=== PATIENT | male | born 1940 | race Caucasian/White ===

== ENCOUNTER 2017-12-10 18:25 | Inpatient (IN) | payer MEDICARE ==
[~2017-12-10 18:25] MED LIST: PHENYLEPHRINE-NS 100 MCG/ML 10 ML SYRINGE ONE
[2017-12-10 19:35] LABS: #Basophils 0.1 thou/uL (0.0-0.2); #Eosinphils 0.1 thou/uL (0.0-0.7); #Lymphocytes 3.5 thou/uL (1.20-3.40); #Monocytes 0.9 thou/uL (0.11-0.59); #Neutrophils 5.4 thou/uL (1.40-6.50); %Basophils 0.7 % (0.0-1.0); %Eosinophils 1.4 % (0.0-10.0); %Lymphocytes 35.1 % (21.0-51.0); %Monocytes 8.5 % (0.0-10.0); %Neutrophils 54.3 % (42.0-75.0); Hemoglobin 9.8 g/dL (14.0-18.0); Mean Corpuscular HGB CONC 32.7 g/dL (32.0-36.0); Mean Corpuscular Hemoglobin 27.3 pg (27.0-31.0); Mean Corpuscular Volume 83.5 fl (80.0-94.0); Mean Platelet Volume 8.5 fL (7.4-10.4); Platelet Count 185 thou/uL (130-400); RBC Distribution Width 14.7 % (11.5-14.5); Red Blood Cell (RBC) Count 3.57 mill/uL (4.70-6.10)
[2017-12-10 19:55] LABS: ALT (SGPT) 20 U/L (8-55); AST (SGOT) 28 U/L (5-34); Albumin 3.4 g/dL (3.4-4.8); Alkaline Phosphatase 91 U/L (40-150); Anion Gap 12 mmol/L (10-20); BUN (Urea Nitrogen) 43 mg/dL (8.4-25.7); Bilirubin, Total 0.5 mg/dL (0.2-1.2); Calc. Creatinine Clearance 0 mL/min (70-130); Calcium 8.8 mg/dL (7.8-10.44); Carbon Dioxide 19 mmol/L (23-31); Chloride 110 mmol/L (98-107); Estimated GFR-MDRD 45; Globulin 3.3 g/dL (2.4-3.5); Glucose 182 mg/dL (83-110); Potassium 4.5 mmol/L (3.5-5.1); Protein, Total 6.7 g/dL (5.8-8.1); Sodium 136 mmol/L (136-145)
[2017-12-10] MEDS ORDERED: Promethazine HCl 25 MG/ML VIAL IM PRN (22:38)
[2017-12-10] MEDS ORDERED: Ondansetron HCl/PF 4 MG/2 ML Vial IVP PRN ×2 (22:38→23:36)
[2017-12-10] MEDS ORDERED: Promethazine HCl 25 MG/ML VIAL SLOW IVP PRN (22:38)
[2017-12-10] MEDS ORDERED: Ondansetron ODT 4 MG TAB SL PRN (23:36)
[2017-12-10] MEDS ORDERED: Sodium Chloride 0.9% 1,000 ML IV SCH (23:45)
[2017-12-11 00:57] VITALS: BMI 28.3
[2017-12-11] MEDS ORDERED: Dextrose 5% in Water 1,000 ML IV PRN (04:26)
[2017-12-11] MEDS ORDERED: HYDROcodone/Acetaminophen 5/325 mg Tablet PO PRN (04:26)
[2017-12-11] MEDS ORDERED: Acetaminophen 325 MG TAB PO PRN (04:26)
[2017-12-11] MEDS ORDERED: Ondansetron HCl/PF 4 MG/2 ML Vial IVP PRN (04:26)
[2017-12-11] MEDS ORDERED: Dextrose 50% Abboject 50 ML SYRINGE SLOW IVP PRN (04:26)
[2017-12-11] MEDS ORDERED: Ondansetron ODT 4 MG TAB PO PRN (04:26)
[2017-12-11 05:36] LABS: #Eosinphils 0.1 thou/uL (0.0-0.7); #Lymphocytes 1.9 thou/uL (1.20-3.40); #Monocytes 0.6 thou/uL (0.11-0.59); #Neutrophils 6.1 thou/uL (1.40-6.50); %Basophils 0.4 % (0.0-1.0); %Lymphocytes 21.8 % (21.0-51.0); %Monocytes 7.1 % (0.0-10.0); %Neutrophils 69.7 % (42.0-75.0); Hemoglobin 8.6 g/dL (14.0-18.0); Mean Corpuscular HGB CONC 32.5 g/dL (32.0-36.0); Mean Corpuscular Hemoglobin 27.3 pg (27.0-31.0); Mean Corpuscular Volume 83.8 fl (80.0-94.0); Mean Platelet Volume 8.8 fL (7.4-10.4); Platelet Count 154 thou/uL (130-400); Red Blood Cell (RBC) Count 3.15 mill/uL (4.70-6.10); White Blood Cell (WBC) Count 8.8 thou/uL (4.8-10.8)
--- NOTE | 2017-12-11 08:22 | HP ---
DATE OF ADMISSION: 12/11/2017 TIME OF SERVICE: 0300 CHIEF COMPLAINT: Black stools. HISTORY OF PRESENT ILLNESS: Mr. Contreras is a pleasant 77-year-old white male with history of diabetes mellitus type 2, cerebrovascular disease, status post stroke in the past, hearing impairment, chroni c tremors, possible early Parkinson's disease, osteoarthritis and past upper gastrointestinal bleedin g from peptic ulcer disease who presents to the emergency department in transfer for evaluation of up per GI bleed. The patient and his did note he has been having black stools that were sticky and tarry and foul smelling for 5-6 days. No vomiting or abdominal pain. He had a history of a gastric ulcer with upper GI bleed in the past requiring 5 units of packed red blood cells. This was very si milar. They presented to an outside urgent care clinic in [place] and were evaluated. There he wa s found to have a hemoglobin of 8.0 and was transferred to a local hospital in [facility]. There repeat labs showed his hemoglobin to have dropped from 8.0 to 7.4. He received 2 units of pack ed red blood cells and was transferred to our facility for further evaluation. The patient had labs again repeated here and was found to have a hemoglobin of 9.8 and we were subseq uently called for admit. Dr. Contreras hadoop application developer for Gastroenterology was consulted as well. Patient was handed over to me as a later admit. I initially tried to see him around 2300 hours on , however, he had already gone to the Gastroenterology lab, I am seeing him post-procedure. He was seen by Dr. Contreras and taken to the endoscopy suite. EGD was performed that found a gastri c ulcer that was bleeding. He was injected with 1:10,000 epinephrine and cauterized with good hemost asis achieved. He was subsequent transferred to the floor. The patient has continued to have a coup le of smaller black bowel movements. No dizziness or lightheadedness with standing. No nausea, vomi ting or other complaints. PAST MEDICAL HISTORY: 1. Diabetes mellitus type 2, insulin-dependent. 2. Cerebrovascular disease status post stroke in the past. 3. Hearing impairment. 4. Tremors, possibly Parkinson disease. 5. Osteoarthritis. 6. Hyperlipidemia. 7. GERD. 8. Benign prostatic hypertrophy. 9. Peptic ulcer disease, status post GI bleed 6-7 years ago. PAST SURGICAL HISTORY: 1. Skin growth on the back of his neck that was noncancerous. 2. EGD 12/10/2017 and earlier 6-7 years ago. HOME MEDICATIONS: 1. Plavix 75 mg p.o. daily. 2. Benazepril 5 mg daily. 3. Cholecalciferol 2000 units daily. 4. Citalopram 10 mg daily. 5. Fenofibrate 160 mg daily. 6. Finasteride 5 mg daily. 7. Levemir 50 units subcutaneously b.i.d. 8. [place] 3 daily. 9. Omeprazole 20 mg daily. 10. Mysoline 150 mg p.o. at bedtime. 11. Simvastatin 40 mg daily. 12. Flomax 0.4 mg p.o. at bedtime. 13. Vitamin B12 intrinsic factor and folate, multivitamin daily. ALLERGIES: ASPIRIN, IODINE and LATEX. FAMILY HISTORY: Negative for clotting or bleeding disorder. No immune dysfunction. SOCIAL HISTORY: Negative for habits x3. He is and no recent travel. REVIEW OF SYSTEMS: Ten point review of systems was performed and is negative for all systems except as per HPI. PHYSICAL EXAMINATION: VITAL SIGNS: Temperature 98.3, pulse 71, blood pressure 144/51, respiratory rate 14, 99% on room air . GENERAL: He is awake. He is alert. He is oriented x3. He is very hard of hearing. He is in no ac annette distress. HEENT: Normocephalic, atraumatic. Pupils equal, round, react to light bilaterally. Mucous membrane s moist. There is no visible lesions or thrush. NECK: Supple, without lymphadenopathy, JVD, or thyromegaly. Normal carotid upstrokes without bruits . RESPIRATORY: Lungs are clear. LUNGS: He has good air movement. Symmetrical chest excursion. No wheezes, no rales, no rhonchi. CARDIOVASCULAR: Normal S1, S2. No S3 or S4. No audible murmurs. He has normal rate and regular rh ythm. ABDOMEN: Soft. It is nontender, nondistended. He has good hyperactive bowel sounds present in all 4 quadrants. There is no rebound, rigidity or guarding. EXTREMITIES: No cyanosis, no clubbing has got 1+ edema in bilateral lower extremities from the ankle level down. He has got 1+ dorsalis pedis and posterior tibial pulses. SKIN: Otherwise, warm and well perfused. No rashes or lesions. MUSCULOSKELETAL: Shows large joint to be uninflamed. He has got good range of motion and no palpabl e effusions. NEUROLOGIC: Shows cranial nerves II-XII are grossly intact. He has no focal neurologic deficits. H e has got 5/5 strength in all 4 of his extremities. Normal speech pattern. LABORATORY DATA: Sodium 136, potassium 4.5, chloride 110, bicarbonate 19, BUN 43, creatinine 1.51, g lucose 182 and calcium 8.8. Liver functions completely within normal limits. CBC showed a white count of 10.0, hemoglobin is 9.8, hematocrit of 29.8, platelet count is 185,000. Hemoglobin is up from 7.4 in the pouching regional status post 2 units of packed red blood cells. RADIOGRAPHIC STUDIES: None here. ASSESSMENT AND PLAN: 1. Duodenal ulcer and upper gastrointestinal bleed: The patient underwent EGD with cautery and chem ical injection. Hemostasis achieved. We will get a repeat H&H now and watch him through the day. T nadege are asking if they would be able to go home later today and that certainly will be up to Dr. Kam curry. I think if his blood counts are stable, it certainly would be a consideration. 2. Acute blood loss anemia, hemoglobin was 8.0 down to 7.4, now up to 9.8. He is status post 2 unit s packed red blood cells. We will trend his H&H. I do expect it to drop some after hydration. 3. Diabetes mellitus type 2. The patient was placed on clear liquid diet. We will use sliding scal e insulin for correction. He normally gets 4 units of Levemir b.i.d. and 30 units of Humalog t.i.d. with meals. We will hold off on the long-acting and short-acting insulins until he is eating more re gularly. 4. Cerebrovascular disease. The patient has been on Plavix. Obviously, that will be on hold at thi s time. He cannot take aspirin due to his allergy. He will need to speak with his neurologist and c ardiologist when he gets back home. 5. Hearing impairment, chronic. 6. History of tremors on Mysoline, will continue. 7. Hyperlipidemia, on Crestor. 8. Gastroesophageal reflux disease/peptic ulcer disease/duodenal ulcer on omeprazole. He is on Prot britta drip now and will likely be transitioned to Protonix 40 mg p.o. b.i.d. for some time. 9. Benign prostatic hypertrophy on tamsulosin and finasteride to continue. CODE STATUS: Code status was discussed with the patient and his family, he does wish to be full code .
[2017-12-11] MEDS: Sodium Chloride 0.9% 1,000 ML IV SCH ×3 (08:30→21:25)
[2017-12-11] MEDS: Finasteride 5 MG TAB PO SCH (08:31)
[2017-12-11] MEDS: Tamsulosin HCl 0.4 MG CAP PO SCH (08:31)
[2017-12-11] MEDS: Citalopram 10 MG TAB PO SCH (08:31)
--- NOTE | 2017-12-11 10:17 | CON ---
DATE OF CONSULTATION: 12/10/2017 REFERRING PHYSICIAN: Dr. Leonardo, [facility] service. REASON FOR CONSULTATION: History of black tarry stools x3 this morning and also anemia. HISTORY OF PRESENT ILLNESS: Mr. Benito Contreras is a very pleasant 77-year-old male, who lives in [place]. The patient has history of hypertension , diabetes mellitus, hyperlipidemia. The patient also has history of TIA and also has history of CVA in the past. The patient developed black-tarry stool this morning around 2:00. He had 3 large black tarry stools, which turned to melenic stools subsequently. The patient was taken to [place] [facility]. He was hypotensive in the ER with systolic blood pressure around 90.. The patient given 2 units of packed RBCs and his blood pressure came up to around 130. The patient was transferred here for further care, as there is no GI M.D. available at [place]. The patient is not a good historian. He is awake, alert, and communicative. However, most of the history was obtained by going over the medical records from before and also talking to the patient's . The patient has had a TIA in the past, also has stroke in the past. The patient was on Plavix for a while, which was stopped. However, a few months ago which showed he was placed back on Plavix again. The patient had no abdominal pain, no nausea, no vomiting. His last bowel movement was 10:00 this morning. He also has a history of bleeding, peptic ulcer 7 years ago and has EEG and had colonoscopy in 2010 at [place]. The patient has no relevant history. ALLERGIES: IODINE, ASPIRIN. SOCIAL HISTORY: Patient is a former smoker. Does not drink alcohol. MEDICAL ILLNESSES: 1. Hypertension. 2. Hyperlipidemia. 3. Diabetes mellitus. 4. Transient ischemic attack. 5. History of cerebrovascular accident, left-sided weakness. 6. History of bleeding peptic ulcer in 2010. 7. History of depression, anxiety. 8. Prostatic hypertrophy. PAST SURGICAL HISTORY: Removal of a noncancerous tumor of the back of the neck in the past. No other surgeries. FAMILY HISTORY: Father and son had CVA and mother and daughter had heart disease. No family history of any cancer. Other relevant medical history, he was hospitalized in 07/2017 with generalized weakness and dehydration. He also had cardiac evaluation in 08/[address] Granado and stress test was negative. He also has history of benign tremors of the hand and he has seen Neurology. There is a mention that he will be developing Parkinson's disease later on. However, they are not told him about Parkinson's disease. MEDICATIONS: List reviewed. REVIEW OF SYSTEMS: A 10-point systems reviewed. SAS DEVELOPER: History of TIA and also CVA in the past. No chronic headache, no syncope, no seizure disorder. Constitutional: No history of fever, no weight loss, has good appetite. Respiratory system: No history of chronic cough. No hemoptysis, dyspnea. Cardiovascular system: No chest pain, no palpitation, no orthopnea or PND. Genitourinary: History of prostatic hypertrophy with some nocturia and also frequency of urination. Musculoskeletal: Nonrelevant. Endocrine: Nonrelevant. Hematological: Nonrelevant. Neuropsychiatric: History of depression. PHYSICAL EXAMINATION: GENERAL: Patient is obese, appears very comfortable. He is awake, alert, and communicative. However, he is not a good historian. Most of the history was obtained by talking to the patient's . VITAL SIGNS: Stable. His pulse is around 77, blood pressure is 130/70. HEENT: Conjunctivae clear. NECK: Supple. No adenitis or thyromegaly noted. CARDIOVASCULAR SYSTEM: First and second heart sounds normal. LUNGS: Clear to auscultation. ABDOMEN: Soft to palpate. No organomegaly. No tenderness. No masses. EXTREMITIES: Reveal no edema. The patient does have a ventral hernia. LABORATORY DATA: Today CBC: WBC 10,000, hemoglobin 9.8, hematocrit 29.8. This is after 2 units of packed RBCs at [place]. The platelet count is 185, 000, polymorphs 54, lymphocytes 35, monocytes 8. Serum chemistries: Sodium is 136, potassium 4.5, chloride is 110, bicarbonate 19, BUN is 43 most likely from GI bleeding, creatinine is 1.51, glucose 182, calcium 8.8. Bilirubin 0.5, AST 28, ALT 20, alkaline phosphatase 91, albumin 3.4. CLINICAL IMPRESSION: 1. A 77-year-old male with history of previous cerebrovascular accident and has been on Plavix. The patient has bleeding and peptic ulcer disease, more than 7 years ago. The patient presents with melena and also anemia. BUN elevated, indicative of acute upper gastrointestinal bleeding. Based on the above information, I believe, he mostly likely has bleeding and peptic ulcer. 2. Hypertension. 3. Hyperlipidemia. 4. Diabetes mellitus. 5. Status post cerebrovascular accident. 6. Prostatic hypertrophy. 7. Past history of bleeding peptic ulcer. 8. Benign tremors. RECOMMENDATIONS: 1. IV PPI. 2. Emergent EGD later on today, and I will make further recommendations. MTDD
--- NOTE | 2017-12-11 12:01 | OP ---
DATE OF PROCEDURE: 12/10/2017 SURGEON: Valerio Contreras M.D. OPERATIVE PROCEDURE: 1. Esophagogastroduodenoscopy. 2. Esophagogastroduodenoscopy with injection of 1:10,000 epinephrine to a total of 7 mL over the bleeding vessel in the duodenal bulb. 3. A 10 [place] heater probe therapy of a bleeding ulcer over the duodenal bulb. PREOPERATIVE DIAGNOSES: A 77-year-old male with melena, anemia due to blood loss and also past history of bleeding peptic ulcer. The patient is on Plavix. Undergoing EGD. POSTOPERATIVE DIAGNOSES: 1. Normal esophagus. 2. Normal fundus, cardia and gastric body. 3. Also, non bleeding gastric ulcer. 4. Bleeding ulcer in the duodenal bulb with a large blood clot. PROCEDURE NOTE: The patient was placed on his left lateral position and was given sedation by Anesthesia Department. A Pentax video gastroscope under direct vision was passed down the oropharynx, past the GE junction, into the stomach. The esophageal mucosa appeared normal. The GE junction, no pathology seen. The fundus, cardia and gastric body, no lesions. The stomach is completely free of any fresh blood or any coffee-ground material. Over the gastric antrum, the patient was found to have erythematous mucosa with a gastric ulcer. The ulcer is nonbleeding. The patient found to have ulceration in the duodenal bulb with a visible vessel and bleeding. The patient has been on Plavix over the last several months. It was injected at the ulcer base and and visible vessel with 1:10,000 epinephrine. A total of _9 ccs injected to ulcer base. The patient continued to have mild bleeding from the ulcer base so I elected to cauterize the ulcer base with a 10-[place] probe with good hemostasis. Because of the Plavix effect, I am not sure whether the cautery would be effective. The stomach was decompressed and scope removed. RECOMMENDATIONS: 1. Follow up H&H. 2. IV PPI. 3. Transfuse p.r.n. 4. Follow up Helicobacter antibody blood test and if the test comes back positive, treat accordingly._. MTDD
[2017-12-11] MEDS: Pantoprazole 80 MG in Sodium Chloride 0.9% 100 ML IVP SCH ×3 (12:12→21:54)
--- NOTE | 2017-12-11 12:54 | PDOC.PN ---
- Subjective Encounter Start Date: 12/11/17 Encounter Start Time: 13:03 Subjective: No new complaints. -: no acute events overnight. -: s/p EGD with duodenal ulcer, bleeding seen. - Objective Resuscitation Status: Resuscitation Status FULL:Full Resuscitation MAR Reviewed: Yes Vital Signs & Weight: Vital Signs (12 hours) Temp Pulse Resp BP BP Pulse Ox 12/11/17 08:30 167/71 H 12/11/17 08:00 97.5 F L 73 18 95 12/11/17 04:00 97.5 F L 73 18 165/79 H 97 Weight Weight 197 lb 1.6 oz I&O: 12/10/17 12/11/17 12/12/17 06:59 06:59 06:59 Intake Total 875 Balance 875 Result Diagrams: 12/11/17 04:46 12/10/17 19:07 Additional Labs: Accuchecks 12/11/17 12/11/17 10:15 06:06 POC Glucose 157 H 164 H Phys Exam - Physical Examination Constitutional: NAD HEENT: PERRLA, moist MMs, sclera anicteric Neck: no JVD, supple, full ROM Respiratory: no wheezing, no rales, no rhonchi, clear to auscultation bilateral Cardiovascular: RRR, no significant murmur, no rub Gastrointestinal: soft, non-tender, no distention, positive bowel sounds Musculoskeletal: no edema, pulses present Psychiatric: normal affect Skin: no rash, normal turgor Dx/Plan (1) Duodenal ulcer Status: Acute Comment: s/p EGD. Hemoglobin stable. Continue IV protonix. f/u GI recs. (2) HTN (hypertension) Code(s): I10 - ESSENTIAL (PRIMARY) HYPERTENSION Status: Acute Qualifiers: Hypertension type: essential hypertension Qualified Code(s): I10 - Essential (primary) hypertension Comment: Fair control bu above goal. Continue home medications. Monitor BP closely. (3) History of CVA (cerebrovascular accident) Code(s): Z86.73 - PRSNL HX OF TIA (TIA), AND CEREB INFRC W/O RESID DEFICITS Status: Acute Comment: Unchanged. (4) BPH (benign prostatic hyperplasia) Code(s): N40.0 - BENIGN PROSTATIC HYPERPLASIA WITHOUT LOWER URINRY TRACT SYMP Status: Chronic Qualifiers: Lower urinary tract symptom presence: unspecified whether lower urinary tract symptoms present Comment: Continue finasteride. (5) DM type 2 (diabetes mellitus, type 2) Status: Chronic Qualifiers: Diabetes mellitus group home insulin use: with group home use Diabetes mellitus complication detail: with chronic kidney disease Chronic kidney disease stage: stage 3 (moderate) Comment: Controlled and at goal. Continue current regimen. (6) Dyslipidemia Code(s): E78.5 - HYPERLIPIDEMIA, UNSPECIFIED Status: Chronic Comment: Continue fenofibrate. - Plan cont current plan of care, plan discussed w/ family, DVT proph w/SCDs Started on clears- will advance as tolerated. * . Review of Systems - Medications/Allergies Allergies/Adverse Reactions: Allergies Allergy/AdvReac Type Severity Reaction Status Date / Time aspirin Allergy Verified 12/11/17 00:47 iodine Allergy Verified 12/11/17 00:47 Medications: Current Medications Acetaminophen (Tylenol) 650 mg PO Q4H PRN PRN Reason: Headache/Fever or Pain Hydrocodone Bitart/Acetaminophen ([place] 5/325) 1 tab PO Q4H PRN PRN Reason: Moderate Pain (4-6) Benazepril HCl (Lotensin) 5 mg PO DAILY [facility] Last Admin: 12/11/17 08:30 Dose: 5 mg Citalopram Hydrobromide (Celexa) 10 mg PO DAILY [facility] Last Admin: 12/11/17 08:31 Dose: 10 mg Dextrose/Water (Dextrose 50%) 25 gm SLOW IVP PRN PRN PRN Reason: Hypoglycemia Finasteride (Proscar) 5 mg PO DAILY [facility] Last Admin: 12/11/17 08:31 Dose: 5 mg Glucagon (Glucagon) 1 mg IM PRN PRN PRN Reason: Hypoglycemia Pantoprazole Sodium 80 mg/ (Sodium Chloride) 100 mls @ 10 mls/hr IVP INF [facility] Last Admin: 12/11/17 12:12 Dose: 100 mls Dextrose/Water (D5w) 1,000 mls @ 0 mls/hr IV .Q0M PRN; As Directed PRN Reason: Hypoglycemia Sodium Chloride (Normal Saline 0.9%) 1,000 mls @ 100 mls/hr IV .Q10H [facility] Last Admin: 12/11/17 08:30 Dose: 1,000 mls Insulin Human Lispro (Humalog) 0 units SC .AGGRESSIVE SLIDING PRN PRN Reason: Aggressive Correctional Scale Insulin Human Lispro (Humalog) 0 units SC .BEDTIME SLIDING SC PRN PRN Reason: Bedtime Correctional Scale Ondansetron HCl (Zofran Odt) 4 mg PO Q6H PRN PRN Reason: Nausea/Vomiting Ondansetron HCl (Zofran) 4 mg IVP Q6H PRN PRN Reason: Nausea/Vomiting Primidone (Mysoline) 150 mg PO [facility] Tamsulosin HCl (Flomax) 0.4 mg PO DAILY [facility] Last Admin: 12/11/17 08:31 Dose: 0.4 mg
[2017-12-11] MEDS: HumaLOG 300 UNITS/3 ML VIAL SC PRN ×2 (18:22→21:29)
[2017-12-11] MEDS: Primidone 50 MG TAB PO SCH (21:25)
[2017-12-12 04:53] LABS: #Eosinphils 0.3 thou/uL (0.0-0.7); #Lymphocytes 2.1 thou/uL (1.20-3.40); #Monocytes 0.6 thou/uL (0.11-0.59); #Neutrophils 2.9 thou/uL (1.40-6.50); %Basophils 0.8 % (0.0-1.0); %Eosinophils 4.4 % (0.0-10.0); %Lymphocytes 36.1 % (21.0-51.0); %Monocytes 9.3 % (0.0-10.0); %Neutrophils 49.5 % (42.0-75.0); Hemoglobin 7.7 g/dL (14.0-18.0); Mean Corpuscular HGB CONC 33.8 g/dL (32.0-36.0); Mean Corpuscular Hemoglobin 27.7 pg (27.0-31.0); Mean Corpuscular Volume 82.1 fl (80.0-94.0); Mean Platelet Volume 8.5 fL (7.4-10.4); Platelet Count 129 thou/uL (130-400); RBC Distribution Width 15.1 % (11.5-14.5); Red Blood Cell (RBC) Count 2.77 mill/uL (4.70-6.10); White Blood Cell (WBC) Count 5.9 thou/uL (4.8-10.8)
[2017-12-12 05:02] LABS: Anion Gap 9 mmol/L (10-20); BUN (Urea Nitrogen) 20 mg/dL (8.4-25.7); Calc. Creatinine Clearance 63 mL/min (70-130); Calcium 8.5 mg/dL (7.8-10.44); Carbon Dioxide 21 mmol/L (23-31); Chloride 113 mmol/L (98-107); Estimated GFR-MDRD 58; Glucose 102 mg/dL (83-110); Potassium 4.1 mmol/L (3.5-5.1); Sodium 139 mmol/L (136-145)
[2017-12-12] MEDS: Finasteride 5 MG TAB PO SCH (07:59)
[2017-12-12] MEDS: Fenofibrate Nanocrystallized 145 MG TAB PO SCH (07:59)
[2017-12-12] MEDS: Citalopram 10 MG TAB PO SCH (08:00)
[2017-12-12] MEDS: Tamsulosin HCl 0.4 MG CAP PO SCH (08:00)
[2017-12-12 08:55] LABS: Hemoglobin 8.3 g/dL (14.0-18.0)
[2017-12-12] MEDS ORDERED: Non-Formulary Item 1 EACH (Fenofibrate [Fenofibrate] 160 MG) PO SCH (09:00)
--- NOTE | 2017-12-12 09:21 | PRG ---
DATE OF SERVICE: 12/11/2017 HISTORY OF PRESENT ILLNESS: Mr. Benito Contreras is a 77-year-old male transferred from [place] with GI bleeding. He underwent an emergent EGD last night. He was found to have 2 ulcerations. One was over the gastric antrum and another over the duodenal bulb. The ulcer was active bleeding. This was injected with epinephrine and also cauterized. However, because he has been on Plavix for a while, it is not very clear whether the heater probe therapy is going to be effective. The patient has done well overnight. The patient had an epsidoe of vomiting last night and also an episode of passing melenic stool. Subsequently, he has had no more nausea or vomiting. OBJECTIVE GENERAL: He is awake, alert, and communicative. He is in no distress. VITAL SIGNS: He is afebrile. His pulse is 73, blood pressure 167/70. CARDIOVASCULAR SYSTEM/LUNGS: Within normal limits. ABDOMEN: Soft to palpate. Abdomen is nontender. There is no organomegaly or masses. LABORATORY DATA: Shows today, chem-7 is normal except BUN is 43. Creatinine is 1.5. The blood count has dropped to 8.6 this morning. The hematocrit is 26.4. RECOMMENDATIONS: 1. Continue IV Protonix. 2. keep him on clear liquids for one more day. 3. Follow up H and H. MTDD
[2017-12-12] MEDS: HumaLOG 300 UNITS/3 ML VIAL SC PRN ×3 (11:32→20:17)
--- NOTE | 2017-12-12 14:02 | PDOC.PN ---
- Subjective Encounter Start Date: 12/12/17 Encounter Start Time: 14:03 Subjective: No new complaints -: No acute events overnight. - Objective Resuscitation Status: Resuscitation Status FULL:Full Resuscitation MAR Reviewed: Yes Vital Signs & Weight: Vital Signs (12 hours) Temp Pulse Resp BP BP Pulse Ox 12/12/17 13:29 98.2 F 67 14 156/58 H 96 12/12/17 08:54 167/71 H 12/12/17 08:00 98.5 F 83 20 Weight Weight 197 lb 1.6 oz I&O: 12/11/17 12/12/17 12/13/17 06:59 06:59 06:59 Intake Total 875 901.5 Output Total 2 Balance 875 899.5 Result Diagrams: 12/12/17 08:34 12/12/17 03:58 Additional Labs: Accuchecks 12/12/17 12/12/17 12/11/17 11:16 05:10 19:46 POC Glucose 179 H 106 231 H 12/11/17 16:06 POC Glucose 195 H Phys Exam - Physical Examination Constitutional: NAD HEENT: PERRLA, moist MMs, sclera anicteric Neck: no JVD, supple, full ROM Respiratory: no wheezing, no rales, no rhonchi, clear to auscultation bilateral Cardiovascular: RRR, no significant murmur, no rub Gastrointestinal: soft, non-tender, no distention, positive bowel sounds Musculoskeletal: no edema, pulses present Neurological: non-focal, moves all 4 limbs Psychiatric: normal affect Deviation from normal: AO x 2 (person and place) Skin: no rash, normal turgor Dx/Plan (1) Duodenal ulcer Status: Acute Comment: s/p EGD. Hemoglobin stable. Continue IV protonix. GI recs/: IVF and protonix for one more day. (2) HTN (hypertension) Code(s): I10 - ESSENTIAL (PRIMARY) HYPERTENSION Status: Acute Qualifiers: Hypertension type: essential hypertension Qualified Code(s): I10 - Essential (primary) hypertension Comment: Fair control. Continue home medications. (3) History of CVA (cerebrovascular accident) Code(s): Z86.73 - PRSNL HX OF TIA (TIA), AND CEREB INFRC W/O RESID DEFICITS Status: Acute Comment: Unchanged. (4) BPH (benign prostatic hyperplasia) Code(s): N40.0 - BENIGN PROSTATIC HYPERPLASIA WITHOUT LOWER URINRY TRACT SYMP Status: Chronic Qualifiers: Lower urinary tract symptom presence: unspecified whether lower urinary tract symptoms present Comment: Continue finasteride. (5) DM type 2 (diabetes mellitus, type 2) Status: Chronic Qualifiers: Diabetes mellitus usp insulin use: with adjunct faculty for medical terminology use Diabetes mellitus complication detail: with chronic kidney disease Chronic kidney disease stage: stage 3 (moderate) Comment: Controlled and at goal. Continue current regimen. (6) Dyslipidemia Code(s): E78.5 - HYPERLIPIDEMIA, UNSPECIFIED Status: Chronic Comment: Continue fenofibrate. - Plan cont current plan of care, plan discussed w/ family, DVT proph w/SCDs * . Review of Systems - Medications/Allergies Allergies/Adverse Reactions: Allergies Allergy/AdvReac Type Severity Reaction Status Date / Time aspirin Allergy Verified 12/11/17 00:47 iodine Allergy Verified 12/11/17 00:47 Medications: Current Medications Acetaminophen (Tylenol) 650 mg PO Q4H PRN PRN Reason: Headache/Fever or Pain Hydrocodone Bitart/Acetaminophen ([place] 5/325) 1 tab PO Q4H PRN PRN Reason: Moderate Pain (4-6) Benazepril HCl (Lotensin) 5 mg PO DAILY [facility] Last Admin: 12/12/17 08:54 Dose: 5 mg Citalopram Hydrobromide (Celexa) 10 mg PO DAILY [facility] Last Admin: 12/12/17 08:00 Dose: 10 mg Dextrose/Water (Dextrose 50%) 25 gm SLOW IVP PRN PRN PRN Reason: Hypoglycemia Fenofibrate (Tricor) 145 mg PO DAILY [facility] Last Admin: 12/12/17 07:59 Dose: 145 mg Finasteride (Proscar) 5 mg PO DAILY [facility] Last Admin: 12/12/17 07:59 Dose: 5 mg Glucagon (Glucagon) 1 mg IM PRN PRN PRN Reason: Hypoglycemia Pantoprazole Sodium 80 mg/ (Sodium Chloride) 100 mls @ 10 mls/hr IVP INF [facility] Last Admin: 12/11/17 21:54 Dose: 100 mls Dextrose/Water (D5w) 1,000 mls @ 0 mls/hr IV .Q0M PRN; As Directed PRN Reason: Hypoglycemia Sodium Chloride (Normal Saline 0.9%) 1,000 mls @ 100 mls/hr IV .Q10H [facility] Last Admin: 12/11/17 21:25 Dose: 1,000 mls Insulin Human Lispro (Humalog) 0 units SC .AGGRESSIVE SLIDING PRN PRN Reason: Aggressive Correctional Scale Last Admin: 12/12/17 11:32 Dose: 3 unit Insulin Human Lispro (Humalog) 0 units SC .BEDTIME SLIDING SC PRN PRN Reason: Bedtime Correctional Scale Last Admin: 12/11/17 21:29 Dose: 2 unit Ondansetron HCl (Zofran Odt) 4 mg PO Q6H PRN PRN Reason: Nausea/Vomiting Ondansetron HCl (Zofran) 4 mg IVP Q6H PRN PRN Reason: Nausea/Vomiting Primidone (Mysoline) 150 mg PO HS [facility] Last Admin: 12/11/17 21:25 Dose: 150 mg Sodium Chloride (Flush - Normal Saline) 10 ml IVF Q12HR [facility] Last Admin: 12/12/17 08:00 Dose: 10 ml Sodium Chloride (Flush - Normal Saline) 10 ml IVF PRN PRN PRN Reason: Saline Flush Tamsulosin HCl (Flomax) 0.4 mg PO DAILY [facility] Last Admin: 12/12/17 08:00 Dose: 0.4 mg
[2017-12-12 14:40] LABS: Hemoglobin 8.1 g/dL (14.0-18.0)
[2017-12-12] MEDS: Sodium Chloride 0.9% 1,000 ML IV SCH ×2 (16:04→20:15)
[2017-12-12] MEDS: Pantoprazole 80 MG in Sodium Chloride 0.9% 100 ML IVP SCH (19:14)
[2017-12-12 19:53] LABS: Hemoglobin 7.8 g/dL (14.0-18.0)
[2017-12-12] MEDS: Primidone 50 MG TAB PO SCH (20:15)
[2017-12-12 21:26] VITALS: TEMP 98.4
[2017-12-13 05:02] LABS: #Eosinphils 0.2 thou/uL (0.0-0.7); #Lymphocytes 1.8 thou/uL (1.20-3.40); #Monocytes 0.5 thou/uL (0.11-0.59); #Neutrophils 2.7 thou/uL (1.40-6.50); %Basophils 0.2 % (0.0-1.0); %Eosinophils 4.5 % (0.0-10.0); %Lymphocytes 34.4 % (21.0-51.0); %Monocytes 9.8 % (0.0-10.0); %Neutrophils 51.2 % (42.0-75.0); Hemoglobin 7.9 g/dL (14.0-18.0); Mean Corpuscular Hemoglobin 27.9 pg (27.0-31.0); Mean Platelet Volume 8.4 fL (7.4-10.4); Platelet Count 132 thou/uL (130-400); RBC Distribution Width 15.2 % (11.5-14.5); Red Blood Cell (RBC) Count 2.82 mill/uL (4.70-6.10); White Blood Cell (WBC) Count 5.3 thou/uL (4.8-10.8)
[2017-12-13 05:14] LABS: Anion Gap 5 mmol/L (10-20); BUN (Urea Nitrogen) 16 mg/dL (8.4-25.7); Calc. Creatinine Clearance 64 mL/min (70-130); Calcium 8.6 mg/dL (7.8-10.44); Carbon Dioxide 25 mmol/L (23-31); Chloride 111 mmol/L (98-107); Estimated GFR-MDRD 59; Glucose 151 mg/dL (83-110); Potassium 3.9 mmol/L (3.5-5.1); Sodium 137 mmol/L (136-145)
[2017-12-13] MEDS: Pantoprazole 80 MG in Sodium Chloride 0.9% 100 ML IVP SCH (05:27)
[2017-12-13] MEDS: Sodium Chloride 0.9% 1,000 ML IV SCH (05:27)
[2017-12-13] MEDS: HumaLOG 300 UNITS/3 ML VIAL SC PRN ×2 (06:11→12:50)
--- NOTE | 2017-12-13 08:17 | PRG ---
DATE OF SERVICE: 12/12/2017 SUBJECTIVE: This is a 77-year-old hospitalized a couple of days ago with anemia, hypotensi on, and GI bleeding. He underwent emergent EGD on Sunday night and was found to have a bleeding ulce r over the duodenal bulb. This was injected with epinephrine and cauterized. He has done well for t he last 24 to 48 hours. He did have 1 dark stool last night. He had abdominal pain, nausea, vomitin g. He had no stool today. The blood count has been drifting down slowly. On 12/10/2017, it was 9.8 and it dropped to 8.6 yesterday and today to 7.7. Hematocrit 22.7. His Ch em-7 shows a normal BUN of 20 and creatinine 1.20. OBJECTIVE: GENERAL: Appears very comfortable. He is awake and communicative. VITAL SIGNS: He is afebrile. Pulse is 67, and blood pressure 157/58. CARDIOVASCULAR SYSTEM: Within normal limits. LUNGS: Within normal limits. ABDOMEN: Soft. No organomegaly. No tenderness. No mass. CLINICAL IMPRESSION: 1. Gastric ulcer. 2. Ulcer in the duodenal bulb with bleeding. 3. Anemia due to blood loss, drop in blood count may be due to hemodilution. He has had no stool si nce last night. RECOMMENDATIONS: 1. Advance diet to 1800-calorie ADA diet. 2. Continue PPI. 3. Follow hemoglobin and hematocrit.
[2017-12-13] MEDS: Citalopram 10 MG TAB PO SCH (09:21)
[2017-12-13] MEDS: Tamsulosin HCl 0.4 MG CAP PO SCH (09:21)
[2017-12-13] MEDS: Fenofibrate Nanocrystallized 145 MG TAB PO SCH (09:21)
[2017-12-13] MEDS: Finasteride 5 MG TAB PO SCH (09:21)
[2017-12-13 09:25] VITALS: BP 167/71
--- NOTE | 2017-12-14 01:23 | DIS ---
DATE OF ADMISSION: 12/10/2017 DATE OF DISCHARGE: 12/13/2017 DISCHARGE DIAGNOSES: Duodenal ulcer, hypertension, history of cerebrovascular accident, benign prost atic hypertrophy, type 2 diabetes mellitus, dyslipidemia. HISTORY OF PRESENT ILLNESS/HOSPITAL COURSE: Mr. 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 He reported that he and his noted he was having dark st icky tarry stools which were foul smelling for 5-6 days. There was no abdominal pain, no nausea or v omiting. He has a history of an upper GI bleed with a gastric ulcer diagnosed in the past requiring 5 units of PRBC. He was seen at an urgent care clinic in [place] where he was evaluated and found to have hemoglobin of 8 and so he was transferred to a local hospital in [facility]. Repeat labs showed that his hemoglobin had dropped from 8-7.4. He received 2 units of packed red b lood cells and was then transferred to [facility] for further evaluation. Hemoglobin was 9. 8 and GI was called for evaluation. He had an EGD which showed bleeding duodenal ulcer. He was take n to the endoscopic suite and injected with 1:10,000 epinephrine and cauterized with good hemostasis achieved. He was then transferred to the floor. He continued to have episodes of dark bowel movemen ts which eventually resolved. Stools became normal. He was placed on IV Protonix. He will be disch arged on b.i.d. Protonix until he is followed up with GI in clinic and also for his home medications, anticoagulation will be held for at least 1 week before he restarts. DISCHARGE MEDICATIONS: Ferrous sulfate 325 mg twice a day, citalopram 10 mg daily, Levemir FlexPen 5 0 units subcutaneously twice a day, cholecalciferol 1000 units daily, rosuvastatin calcium 40 mg norma y, tamsulosin 0.4 mg daily, fenofibrate 160 mg daily, finasteride 5 mg daily, omega fatty acids, ric zepril 5 mg daily, vitamin B12/folic acid 1 tablet daily, primidone 150 mg at bedtime, Plavix 75 mg d aily, omeprazole 40 mg twice a day. PHYSICAL EXAMINATION: He was examined on the day of discharge. VITAL SIGNS: Temperature 98.4 degree Fahrenheit, pulse rate 75, blood pressure 167/71, respiratory r ate 18, oxygen saturation 93% on room air. GENERAL: Not in acute distress, lying comfortably in bed. HEENT: PERRLA, EOMI. Moist mucous membranes. Sclerae are anicteric, not pale. NECK: No JVD. Supple. RESPIRATORY: Vesicular breath sounds bilaterally with no wheezes, rales or rhonchi. CARDIOVASCULAR: S1 and S2 only with regular rate and rhythm. No murmurs, rubs or gallops. GASTROINTESTINAL: Soft, not tender, not distended. Bowel sounds normoactive. No hepatosplenomegaly . MUSCULOSKELETAL: No edema. NEUROLOGIC: Alert and oriented to person and place. No focal deficits. SKIN: Warm, dry, well-perfused. No rashes or lesions. PSYCHIATRIC: Normal mood and affect. LABORATORY DATA: Hemoglobin 7.9, WBC 5.3, platelet count 132. Sodium 137, potassium 3.9, chloride 1 11, carbon dioxide 25, anion gap 5, BUN 15, creatinine 1.19, glucose 151, calcium 8.6. IMAGING: None. PROCEDURES: EGD. CONSULTS: Gastroenterology. CONDITION AT DISCHARGE: Stable and improved. DIET: Diabetic. ACTIVITY: To resume as tolerated. CARE GOAL: To follow up with primary care physician within 1 week of discharge to repeat labs. He i s advised to return to the hospital if he develops any further episodes of dark stools or any form of gastrointestinal bleed. Discharge time 65 minutes including chart review and documentation.
== END 2017-12-13 18:20 | disposition home health service (06) | DRG 378 ==
LOC: ERS 18:25 → ERHOLD 19:38 → 2NO 23:30 → T4-B 12-11 14:45
PROVIDERS: ADMIT Emergency Medicine; ATTEND Emergency Medicine
PROC: 0W3P8ZZ Control Bleeding in Gastrointestinal Tract, Via Natural or Artificial Opening Endoscopic (ICD-10-PCS; principal; 2017-12-10)
DX: K26.4 Chronic or unspecified duodenal ulcer with hemorrhage (principal); D62 Acute posthemorrhagic anemia; E11.22 Type 2 diabetes mellitus with diabetic chronic kidney disease; G20 Parkinson's disease; I69.354 Hemiplegia and hemiparesis following cerebral infarction affecting left non-dominant side; N40.0 Benign prostatic hyperplasia without lower urinary tract symptoms; Z86.73 Personal history of transient ischemic attack (TIA), and cerebral infarction without residual deficits; E78.5 Hyperlipidemia, unspecified; M19.90 Unspecified osteoarthritis, unspecified site; K21.9 Gastro-esophageal reflux disease without esophagitis; I12.9 Hypertensive chronic kidney disease with stage 1 through stage 4 chronic kidney disease, or unspecified chronic kidney disease; N18.3 Chronic kidney disease, stage 3 (moderate)
CPT/HCPCS: 36415; 36416; 80048; 80053; 85025; 86850; 86900; 86901; 96365; 96366; A4216; C9113; J7050

== ENCOUNTER 2018-02-19 06:25 | Day surgery (SDC) | payer MEDICARE ==
[2018-02-18 10:38] VITALS: BMI 29.4
--- NOTE | 2018-02-19 07:42 | HP ---
SHORT STAY HISTORY AND PHYSICAL DATE OF ADMISSION: 02/19/2018 HISTORY OF PRESENT ILLNESS: Mr. Benito Contreras is a very pleasant 77-year-old male seen here few months ago with anemia, melena. He had an EGD and found to have bleeding ulcer in the duodenal bulb. The patient was placed on omeprazole. The patient has done well since his discharge from the hospital. The patient does take anticoagulation because previous CVA. The patient was advised to yost ve a repeat EGD done because of the bleeding peptic ulcer before. ALLERGIES: ASPIRIN, IODINE. MEDICAL ILLNESSES: 1. Hypertension. 2. Bleeding duodenal ulcer. 3. Status post CVA. 4. Diabetes. 5. Anxiety. 6. Benign prostatic hypertrophy. 7. Mild cognitive impairment. PHYSICAL EXAMINATION: VITAL SIGNS: Pulse is 70, blood pressure 130/80. HEENT: Conjunctivae clear. CARDIOVASCULAR SYSTEM: First and second heart sounds normal. LUNGS: Clear to auscultation. ABDOMEN: Soft to palpate. No organomegaly. No tenderness. No masses. ADMITTING DIAGNOSIS: Bleeding duodenal ulcer. PLAN: Repeat EGD.
--- NOTE | 2018-02-19 09:49 | OP ---
DATE OF PROCEDURE: 02/19/2018 SURGEON: Valerio Contreras M.D. OPERATIVE PROCEDURE: Esophagogastroduodenoscopy with biopsy. PREOPERATIVE DIAGNOSIS: A 77-year-old with a recent GI bleeding and was found to have a bl eeding ulcer in the duodenal bulb. The patient on PPI and also on Plavix because of previous cerebro vascular accident. The patient is symptomatic. The patient is undergoing repeat esophagogastroduode noscopy. POSTOPERATIVE DIAGNOSES: 1. Distal esophageal ring, nonobstructing. 2. Gastric erosions x2. 3. Shallow ulcer in the duodenal bulb with erythematous spot without any active bleeding. 4. Multiple tiny ulcers in the duodenal bulb. PROCEDURE IN DETAIL: The patient was placed on his left lateral position and was given sedation by A nesthesia Department. A Pentax video gastroscope under direct vision was passed down the oropharynx, past the GE junction, into the stomach and subsequently into the descending duodenum. The vocal cor ds appeared healthy. The esophageal mucosa appears normal throughout the stomach. At the GE junctio n, the patient found to have esophageal ring which was nonobstructing. Retroflexion failed to show a ny pathology of the fundus or cardia. Both the gastric body and antrum appeared healthy. The incisu ra angularis, no pathology seen. The duodenal bulb showed a shallow ulcer with erythematous spot. T his was not cauterized because he is on Plavix and aspirin. He also had 2-3 small tiny ulcerations i n the duodenal bulb. The descending duodenum, no pathology seen. Biopsies obtained of gastric antru m and gastric body. The stomach was decompressed and the scope removed. DISCHARGE PLANNING: This is a 77-year-old male with recent gastrointestinal bleeding and w as found to have a bleeding ulcer in the duodenal bulb. The patient underwent EGD and was found to h ave 2-3 small ulceration in the duodenal bulb and also a shallow ulcer. DISCHARGE RECOMMENDATIONS: 1. Pantoprazole 40 mg once a day. 2. Continue iron supplement. 3. The patient was advised to call me if he develops any melena or hematemesis.
[2018-02-19] MEDS ORDERED: Lidocaine 1% PF 5 ML VIAL ONE (12:54)
[2018-02-19] MEDS ORDERED: PROPOFOL 200 MG/20 ML VIAL ONE (12:54)
== END 2018-02-19 10:40 | disposition home or self-care (01) ==
LOC: SDC 06:25
PROVIDERS: ATTEND Internal Medicine Gastroenterology
PROC: 0DB68ZX Excision of Stomach, Via Natural or Artificial Opening Endoscopic, Diagnostic (ICD-10-PCS; principal; 2018-02-19)
DX: K25.9 Gastric ulcer, unspecified as acute or chronic, without hemorrhage or perforation (principal); K26.9 Duodenal ulcer, unspecified as acute or chronic, without hemorrhage or perforation; I10 Essential (primary) hypertension; E11.9 Type 2 diabetes mellitus without complications; Z88.5 Allergy status to narcotic agent; Z91.041 Radiographic dye allergy status; Z79.02 Long term (current) use of antithrombotics/antiplatelets; Z79.4 Long term (current) use of insulin; Z79.899 Other long term (current) drug therapy
CPT/HCPCS: 36416; 88305; 88312; J2001; J2704

== ENCOUNTER 2018-03-28 17:06 | Emergency (ER) | payer MEDICARE ==
[2018-03-28 17:52] LABS: #Basophils 0.1 thou/uL (0.0-0.2); #Eosinphils 0.3 thou/uL (0.0-0.7); #Lymphocytes 5.5 thou/uL (1.20-3.40); #Monocytes 1.5 thou/uL (0.11-0.59); #Neutrophils 6.1 thou/uL (1.40-6.50); %Eosinophils 2.2 % (0.0-10.0); %Lymphocytes 40.6 % (21.0-51.0); %Monocytes 10.8 % (0.0-10.0); %Neutrophils 45.4 % (42.0-75.0); Hemoglobin 12.6 g/dL (14.0-18.0); Mean Corpuscular HGB CONC 34.2 g/dL (32.0-36.0); Mean Corpuscular Hemoglobin 28.9 pg (27.0-31.0); Mean Corpuscular Volume 84.4 fL (78.0-98.0); Mean Platelet Volume 7.9 fL (7.4-10.4); Platelet Count 230 thou/uL (130-400); RBC Distribution Width 13.5 % (11.5-14.5); Red Blood Cell (RBC) Count 4.35 mill/uL (4.70-6.10); White Blood Cell (WBC) Count 13.4 thou/uL (4.8-10.8)
[2018-03-28 18:16] LABS: ALT (SGPT) 17 U/L (8-55); AST (SGOT) 36 U/L (5-34); Albumin 3.8 g/dL (3.4-4.8); Alkaline Phosphatase 115 U/L (40-150); Anion Gap 13 mmol/L (10-20); BUN (Urea Nitrogen) 28 mg/dL (8.4-25.7); Bilirubin, Total 0.5 mg/dL (0.2-1.2); CK (CPK) 123 U/L (30-200); Calc. Creatinine Clearance 0 mL/min (70-130); Calcium 9.7 mg/dL (7.8-10.44); Carbon Dioxide 20 mmol/L (23-31); Chloride 108 mmol/L (98-107); Estimated GFR-MDRD 42; Globulin 4.2 g/dL (2.4-3.5); Lipase 41 U/L (8-78); Potassium 3.8 mmol/L (3.5-5.1); Sodium 137 mmol/L (136-145)
[2018-03-28 18:18] LABS: CKMB 2.7 ng/mL (0-6.6); Troponin I Less than 0.010 ng/mL (< 0.028)
--- NOTE | 2018-03-28 18:19 | RAD ---
PORTABLE FAP CHEST X-RAY 03/28/18 HISTORY: Altered mental status, multiple falls. COMPARISON: 07/16/17. FINDINGS: The cardiac silhouette is magnified by projection but does appear mildly enlarged. Pulmonary vasculat ure is within normal limits. Vascular calcifications seen in the thoracic aorta. There are degenerati ve changes in the spine with evidence of osteopenia. There has been no significant interval change fr om prior exam. IMPRESSION: 1. No acute cardiopulmonary process. 2. Mild cardiomegaly. 3. Osteopenia. POS: JAYNE
[2018-03-28 18:20] LABS: Glucose 46 mg/dL (83-110)
[2018-03-28] MEDS ORDERED: Dextrose 50% Abboject 50 ML SYRINGE ONE (18:23)
--- NOTE | 2018-03-28 18:30 | CT ---
NONCONTRAST CT HEAD: 03/28/18 HISTORY: Altered mental status. History of multiple falls. COMPARISON: 03/21/18. FINDINGS: There is stable area of encephalomalacia within the right anterior frontal region and distribution of the right middle cerebral artery likely related to remote right MCA distribution infarction. Stable low density area within the right basal ganglia and thalamus is also again present likely related to remote lacunar infarctions and likely associated with the right MCA distribution infarction. There is stable chronic small vessel ischemic changes and cerebral volume loss. There is mild cerebral volume loss. Ventricular system is normal in size, shape, and position. There is no evidence of an acute cortical infarction, hemorrhage, mass effect, or midline shift. CT scan of the head is stable from prior exam. IMPRESSION: Stable chronic findings as described above. No acute intracranial abnormality is demonstrated. POS: LOPEZ
--- NOTE | 2018-03-28 19:15 | CT ---
NONCONTRAST CT PELVIS 03/28/18 HISTORY: Fall with right hip pain. History of multiple falls. Negative plain film x-ray examination. COMPARISON: None available. FINDINGS: There is symmetric bilateral hip osteoarthritis. There is mild bilateral sacroiliac joint osteoarthri tis with degenerative changes at the pubic symphysis and involving the lower lumbar spine. No fracture or dislocation is seen involving the pelvis. Vascular calcifications are seen in the visualized infrarenal abdominal aorta as well as involving th e iliac and femoral arteries. There are calcifications seen in the dependent portion of the urinary b ladder suggesting urinary bladder calculi layering dependently within the urinary bladder. No free fl uid or fluid collection is seen in the pelvis. There is mild symmetric subcutaneous soft tissue swelling adjacent to the region of the intertrochant pito regions of each hip which is nonspecific. No joint effusion is identified. There is osteopenia n oted. Prostate calcifications are identified. IMPRESSION: 1. Osteopenia and osteoarthritis as described above, but no acute fracture or dislocation is see n. 2. Degenerative changes lower lumbar spine with what appears to be a remote fracture involving t he lower most portion of the sacrum just above the level of the coccyx. 3. Prominent vascular calcifications. 4. Calculi layering dependently within the urinary bladder. POS: JAYNE
[2018-03-28 19:43] LABS: Bilirubin Negative (Negative); Blood, Urine Negative (Negative); Clarity CLEAR (Clear); Glucose, Urine (Dipstick) 250 mg/dL (Negative); Leukocyte Negative (Negative); Nitrite Negative (Negative); Protein, Urine (Dipstick) Trace mg/dL (Neg-Trace); Specific Gravity, Urine 1.017 (1.002-1.036)
== END 2018-03-28 23:36 ==
LOC: ERS 17:06
DX: G20 Parkinson's disease (principal); E86.0 Dehydration; R62.7 Adult failure to thrive; F03.90 Unspecified dementia, unspecified severity, without behavioral disturbance, psychotic disturbance, mood disturbance, and anxiety; E11.9 Type 2 diabetes mellitus without complications; E78.5 Hyperlipidemia, unspecified; K21.9 Gastro-esophageal reflux disease without esophagitis; F32.9 Major depressive disorder, single episode, unspecified; Z86.73 Personal history of transient ischemic attack (TIA), and cerebral infarction without residual deficits; Z79.899 Other long term (current) drug therapy; Z79.4 Long term (current) use of insulin
CPT/HCPCS: 36415; 36416; 51701; 70450; 71045; 72192; 80053; 81003; 82140; 82550; 82553; 83605; 83690; 83880; 84443; 84484; 85025; 87040; 93005; 96361; 96374

== ENCOUNTER 2018-09-26 16:06 | Inpatient (IN) | payer MEDICARE ==
[~2018-09-26 16:06] MED LIST changes: +ISOVUE-370 76%-LOCM 1 ML ONE; -PHENYLEPHRINE-NS 100 MCG/ML 10 ML SYRINGE ONE
[2018-09-26 17:59] LABS: #Basophils 0.1 thou/uL (0.0-0.2); #Eosinphils 0.1 thou/uL (0.0-0.7); #Lymphocytes 1.6 thou/uL (1.20-3.40); #Monocytes 0.8 thou/uL (0.11-0.59); %Lymphocytes 20.9 % (21.0-51.0); %Monocytes 10.9 % (0.0-10.0); %Neutrophils 66.2 % (42.0-75.0); Mean Corpuscular HGB CONC 30.6 g/dL (32.0-36.0); Mean Corpuscular Hemoglobin 26.5 pg (27.0-31.0); Mean Corpuscular Volume 86.5 fL (78.0-98.0); Mean Platelet Volume 8.9 fL (7.4-10.4); Platelet Count 254 thou/uL (130-400); RBC Distribution Width 14.9 % (11.5-14.5); Red Blood Cell (RBC) Count 5.67 mill/uL (4.70-6.10); White Blood Cell (WBC) Count 7.6 thou/uL (4.8-10.8)
[2018-09-26 18:23] LABS: ALT (SGPT) 36 U/L (8-55); AST (SGOT) 220 U/L (5-34); Albumin 3.4 g/dL (3.4-4.8); Alkaline Phosphatase 227 U/L (40-150); Anion Gap 12 mmol/L (10-20); BUN (Urea Nitrogen) 25 mg/dL (8.4-25.7); Bilirubin, Total 0.8 mg/dL (0.2-1.2); Calc. Creatinine Clearance 0 mL/min (70-130); Calcium 10.3 mg/dL (7.8-10.44); Carbon Dioxide 25 mmol/L (23-31); Chloride 106 mmol/L (98-107); Estimated GFR-MDRD 40; Globulin 5.1 g/dL (2.4-3.5); Glucose 182 mg/dL (83-110); Magnesium 1.7 mg/dL (1.6-2.6); Potassium 4.7 mmol/L (3.5-5.1); Protein, Total 8.5 g/dL (5.8-8.1); Sodium 138 mmol/L (136-145)
--- NOTE | 2018-09-26 18:36 | CT ---
CT BRAIN NONCONTRAST: DATE: 09/26/18 at 5:40 p.m. HISTORY: 78-year-old male with generalized weakness and tremor. COMPARISON: 03/28/18. FINDINGS: Moderate to large region of right frontal lobe encephalomalacia and gliosis, contiguously involving a djacent right upper basal ganglia and right caudate nucleus. No obstructive hydrocephalus, mass effec t, midline shift, acute intra-axial or extra-axial hemorrhage, or extra-axial fluid collection. No ca lvarial fracture. No interval change overall. Diffuse chronic ischemic white matter changes of the ce rebrum and brainstem. There is also a small old infarction of anterior portion of the right thalamus. IMPRESSION: 1. No acute intracranial findings. 2. Moderately large old infarction in the right middle cerebral artery territory. 3. Small old infarctions of right corpus striatum and right thalamus. 4. Chronic ischemic white matter changes. ARELY Mendez POS: LOPEZ
[2018-09-26 18:39] LABS: Bilirubin Negative (Negative); Blood, Urine Negative (Negative); Clarity CLEAR (Clear); Glucose, Urine (Dipstick) 250 mg/dL (Negative); Leukocyte Negative (Negative); Nitrite Negative (Negative); Protein, Urine (Dipstick) 100 mg/dL (Neg-Trace)
[2018-09-26 18:45] LABS: Bacteria/HPF None Seen HPF (None Seen); Hyaline Casts/LPF 0-3 HYALINE CAST LPF (0-3 Hyaline); Pathc Cast-AUWi Flag 0.29 (0-2.49); RBC/HPF 0-3 HPF (0-3); Squamous Epithelial None Seen HPF (0-3); WBC/HPF None Seen HPF (0-3)
--- NOTE | 2018-09-26 18:51 | RAD ---
CHEST ONE VIEW: 09/26/18 HISTORY: Weakness. Dyspnea. COMPARISON: 03/28/18. FINDINGS: The cardiac silhouette is magnified by projection. Patient is slightly rotated rightward. Pulmonary v asculature is upper limits of normal. Calcified granulomata are consistent with healed granulomatous disease. Arterial calcification is apparent. No evidence of pneumothorax. IMPRESSION: Atherosclerosis. No active cardiopulmonary abnormalities are otherwise demonstrated. POS: BST
--- NOTE | 2018-09-26 23:00 | CT ---
CT ABDOMEN WITH CONTRAST CT PELVIS WITH CONTRAST: DATE: 09/26/18 at 10:20 p.m. HISTORY: 78-year-old male with elevated LFTs and generalized abdominal pain. COMPARISON: Noncontrast abdominal CT of 01/05/[address] of 03/28/18. FINDINGS: There are several new hepatic masses. At the junction between hepatic segments VII and VIII of the ri ght lobe of the liver, there is a new approximately 4.5 x 5 x 4.5 cm mixed attenuation mass. More med ially at the dome of the right lobe of the liver, in hepatic segment VIII there is an ill-defined sli ghtly low attenuation approximately 3 x 4 x 3.5 cm new lesion. There is a large, confluent, lobulated, approximately a 14.5 x 8.5 x 12 cm region of attenuation that is slightly higher than the rest of the liver parenchyma. This involves hepatic segments V, , VII, and VIII. This could be one very large mass or a combination of masses. There are probably other additional hepatic masses. A 1.5 x 1.5 x 1.5 cm celiac lymph node at midline in the upper abdomen. No splenomegaly. Interval increase in caliber of multiple dilated, tortuous ve ins throughout the left upper quadrant of the abdominal cavity. No hydronephrosis. Atherosclerotic ca lcification of abdominal aorta and its branches without aneurysm. No adrenal mass. Normal pancreas. T hin layer of calcification along the posterior wall of the urinary bladder is again noted. This is co nsistent with calcification of the bladder wall rather than calculi. The appearance is slightly great er than on the prior pelvic CT. The urinary bladder has normal, thin corona. No colonic diverticulitis . No small bowel dilation. No ascites. Normal appendix. Hepatic margins are diffusely nodular, consis tent with cirrhosis. No pleural effusion. IMPRESSION: 1. Multiple hepatic masses that are heterogeneous relative to each other, including very large o kolby. The findings are evidence for malignant neoplasm, either multicentric hepatocellular carcinoma o r hepatic metastases. 2. Hepatic cirrhosis. 3. Interval worsening of left upper quadrant varices. 4. Mildly enlarged celiac lymph node. JN R POS: [facility]
[2018-09-27] MEDS ORDERED: Ondansetron PF 4 MG/2 ML Vial IVP PRN (02:25)
[2018-09-27] MEDS ORDERED: Dextrose 50% Abboject 50 ML SYRINGE SLOW IVP PRN (02:35)
[2018-09-27] MEDS ORDERED: Dextrose 5% in Water 1,000 ML IV PRN (02:35)
[2018-09-27 03:04] VITALS: BMI 25.9
[2018-09-27 07:55] LABS: #Eosinphils 0.2 thou/uL (0.0-0.7); #Lymphocytes 1.7 thou/uL (1.20-3.40); #Monocytes 0.8 thou/uL (0.11-0.59); #Neutrophils 3.2 thou/uL (1.40-6.50); %Basophils 0.6 % (0.0-1.0); %Eosinophils 3.3 % (0.0-10.0); %Lymphocytes 28.7 % (21.0-51.0); %Monocytes 13.7 % (0.0-10.0); %Neutrophils 53.7 % (42.0-75.0); Hemoglobin 14.3 g/dL (14.0-18.0); Mean Corpuscular HGB CONC 31.3 g/dL (32.0-36.0); Mean Corpuscular Hemoglobin 27.7 pg (27.0-31.0); Mean Corpuscular Volume 88.6 fL (78.0-98.0); Mean Platelet Volume 9.1 fL (7.4-10.4); Platelet Count 216 thou/uL (130-400); RBC Distribution Width 14.8 % (11.5-14.5); Red Blood Cell (RBC) Count 5.18 mill/uL (4.70-6.10)
--- NOTE | 2018-09-27 08:06 | HP ---
PRIMARY CARE DOCTOR: Jacquelyn Leonardo. CODE STATUS: Full code. TIME OF EVALUATION: 12:00 a.m. CHIEF COMPLAINT: Weakness and dizziness. HISTORY OF PRESENT ILLNESS: This is an 78-year-old male patient with past medical history of Parkinson disease, dementia, diabetes, hyperlipidemia, hypertension, GERD, BPH, came to the hospital after having an episode of feeling extremely weak, unable to function properly and do his activities of daily living as per the patient's baseline, is giving the report at bedside stating that had significant difficult sitting and standing. Symptoms have been present for the past few days, has been gradually getting worse, with no clear triggers, no alleviating factors. REVIEW OF SYSTEMS: CONSTITUTIONAL: The patient's reported that he had some occasional subjective fevers, no chills, the patient reported generalized weakness. RESPIRATORY: No cough, sputum production, or shortness of breath. CARDIOVASCULAR: No chest pain or palpitations. GASTROINTESTINAL: No nausea. No vomiting, diarrhea, or abdominal pain. WOOL CARDER: The patient has been dizzy, feel lightheaded, very weak. GENITOURINARY: No burning on urination. EXTREMITIES: No leg swelling. All other systems were reviewed and negative except for the findings mentioned above. PAST MEDICAL HISTORY: Mentioned in the HPI. PAST SURGICAL HISTORY: Skin growth removed from the neck. PSYCHIATRIC HISTORY: Includes depression. SOCIAL HISTORY: No alcohol, no drug, no smoking history. The patient lives with . ALLERGIES: TO ASPIRIN AND IODINE. REPORTED MEDICATIONS: 1. Benazepril. 2. Citalopram. 3. Finasteride. 4. Fenofibrate. 5. Levemir. 6. Humalog. 7. Levocetirizine. 8. Loperamide. 9. Mirtazepine. 10. Primidone. 11. Protonix. 12. K-Dur. 13. Tamsulosin. VITAL SIGNS ON PRESENTATION: Blood pressure 185/79 with heart rate 81, respiratory rate was 16, temperature 98.1, oxygen saturation was 100 on room air. PHYSICAL EXAMINATION: GENERAL APPEARANCE: The patient has generalized weakness. He is alert, not very talkative. HEENT: Eyes, normal conjunctivae. Moist oral mucosa. Anicteric. No JVD. RESPIRATORY: Bilateral air entry. No rales. No wheezes. Symmetric expansion. CARDIOVASCULAR: Normal rate. Regular rhythm. No murmurs. No gallops. No edema. ABDOMEN: Soft. Normal bowel sounds. MUSCULOSKELETAL: Baseline range of motion and strength. No tenderness. SKIN: Warm and intact. No pallor. No rash. No redness. EXTREMITIES: Peripheral pulses are present. Capillary refill seems to be intact. NEURO: The patient has rigidity of all 4 extremities due to increased tone, cranial nerves seems to be intact, and expressive aphasia. PSYCH: The patient is in good mood. No anxiety. Not very talkative. Not very cooperative. LABORATORY DATA: EKG was reviewed. The patient has normal sinus rhythm at a rate of 73, W[place] 186, QRS 94, QT corrected 458. Chest x-ray was reviewed. The patient has atherosclerosis, no active cardiopulmonary abnormalities were demonstrated. Brain CT; the patient has no acute intracranial findings, moderately large old infarction in the right middle cerebral artery territory, small old infarction of corpus striatum and right thalamus, chronic ischemic white matter changes. Abdomen and pelvic CT; multiple hepatic masses that are heterogenous relating to each other including very large ones and findings are evident for malignant neoplasm, either multicentric hepatocellular carcinoma or hepatic metastasis, hepatic cirrhosis, interval worsening of the left upper quadrant varices, mildly enlarged celiac lymph nodes. Labs were reviewed. The patient has white count 7.6, hemoglobin 15, MCV 86, platelet count 254. Chemistry; sodium 138, potassium 4.7, chloride 106, carbon dioxide 25, anion gap 12, BUN 25, creatinine 1.65, on previous admission, the patient had creatinine of 1.6. GFR 40, glucose 182, calcium 10.3, magnesium 1.7, total bilirubin 0.8, AST 20, ALT is normal, alkaline phosphatase 227, troponin was negative. Beta natriuretic peptide was 189. Urine was done and it was negative, only positive for glucosuria. ASSESSMENT AND PLAN: The patient was placed in the hospital with following medical problems: 1. Generalized weakness, with chronic deconditioning, could be multifactorial. The patient has been found to have some possible liver metastasis. Further workup needs to be done. The patient may have underlying malignancy given him failure to thrive and gradually worsening and deconditioning. 2. Metastatic liver disease, seen in the CT scan, this is something normal. Will need further studies, for diagnosis and management. Might need oncology evaluation may be done as outpatient. 3. History of Parkinson disease. The patient has increase in muscle tone in all four limbs. Primary care doctor had been working on it. Will need home medication reconciliation and adjustment for Parkinson disease medications. 4. Underlying dementia, seems to be mild. The patient is still responsive. The patient also is not very cooperative, but this is why it is reported. Will need support as inpatient. 5. Uncontrolled diabetes. The patient has blood sugar of 182, we will reconcile home medications, adjust insulin with sliding scale for optimal control, diabetic diet. 6. Chronic kidney disease with GFR 40, stage 3, we will monitor kidney function, we will treat accordingly. 7. Deep venous thrombosis prophylaxis. Job ID: [id number]
[2018-09-27 08:11] LABS: Anion Gap 11 mmol/L (10-20); BUN (Urea Nitrogen) 22 mg/dL (8.4-25.7); Calc. Creatinine Clearance 51 mL/min (70-130); Calcium 10.1 mg/dL (7.8-10.44); Carbon Dioxide 27 mmol/L (23-31); Chloride 109 mmol/L (98-107); Estimated GFR-MDRD 51; Glucose 133 mg/dL (83-110); Potassium 4.9 mmol/L (3.5-5.1); Sodium 142 mmol/L (136-145)
[2018-09-27] MEDS: Fish Oil 1,000 MG CAP PO SCH (08:50)
[2018-09-27] MEDS: Finasteride 5 MG TAB PO SCH (08:50)
[2018-09-27] MEDS: Ferrous Sulfate 325 MG TAB PO SCH ×2 (08:51→20:38)
[2018-09-27] MEDS: Clopidogrel Bisulfate 75 MG TAB PO SCH (08:51)
[2018-09-27] MEDS: Tamsulosin HCl 0.4 MG CAP PO SCH (08:51)
[2018-09-27] MEDS: Heparin 5,000 UNITS/ML VIAL SC SCH ×3 (08:52→20:38)
[2018-09-27] MEDS: Fenofibrate Nanocrystallized 145 MG TAB PO SCH (08:52)
[2018-09-27] MEDS: Citalopram 10 MG TAB PO SCH (08:52)
[2018-09-27] MEDS: Insulin Glargine 35 UNITS in Pre-Filled Syringe 1 EACH SC SCH ×2 (08:54→20:38)
[2018-09-27] MEDS ORDERED: Non-Formulary Item 1 EACH (Levemir Flexpen [Levemir Flexpen] 35 UNIT) SC SCH (09:00)
[2018-09-27] MEDS: HumaLOG 300 UNITS/3 ML VIAL SC PRN ×2 (11:28→17:37)
[2018-09-27] MEDS: Sodium Chloride 0.45% 1,000 ML IV SCH (14:32)
--- NOTE | 2018-09-27 20:26 | CON ---
DATE OF CONSULTATION: 09/27/2018 REASON FOR CONSULTATION: Abnormal GI imaging, concern for metastatic hepatocellular carcinoma. CONSULTING PHYSICIAN: John Alvarado MD. HISTORY OF PRESENT ILLNESS: The patient is an 78-year-old male with past medical history of diabetes, hyperlipidemia, hypertension, GERD, benign prostatic hyperplasia, and Parkinson disease with [id number] dementia, who initially presented with complaints of weakness. Per discussion with the patient's , he had been exhibiting increased somnolence and weakness over the last 3-4 days that had progressively gotten worse over the same time to the point where he was unable to lift his head or assume either a sitting or standing position. With this inability to adequately care for himself in terms of his ADLs, 911 was called with transfer of the patient to the [place] [facility] for further evaluation. Per the patient's , he had also been exhibiting mild coughing and diaphoresis over the last 3-4 days, but this was also intermittent at best. She also endorsed increased diarrhea that had been present for years, characterizes having approximately one semi-solid/liquid bowel movement per day with episodes of fecal urgency and accidents; however, she denies any recent episodes of nausea, vomiting, fevers, chills, GI bleeding, or change in his mental status. Upon evaluation in the [place] [facility], he was noted to have a mildly elevated transaminases, but imaging showing multiple lesions within the liver with the largest lesion being approximately 14 cm in diameter. He was then admitted to the hospital for further evaluation of his care. REVIEW OF SYSTEMS: A further review of systems could not be performed due to the patient's [id number] dementia and limited in the activity during the course of this interview. PAST MEDICAL HISTORY: As per chart review. PAST SURGICAL HISTORY: Skin growth excision from the neck. FAMILY HISTORY: reports that there is cancer in the family, but could not recall what kind of cancer. SOCIAL HISTORY: Denies any tobacco, alcohol, or illicit drug use. She also denies any significant alcohol use in the last 30 years. OUTPATIENT MEDICATIONS: 1. Benazepril. 2. Citalopram. 3. Finasteride. 4. Fenofibrate. 5. Levemir. 6. Humalog. 7. Levocetirizine. 8. Loperamide. 9. Mirtazapine. 10. Primidone. 11. Protonix. 12. Tamsulosin. 13. K-Dur. ALLERGIES: 1. ASPIRIN. 2. IODINE. PHYSICAL EXAMINATION: VITAL SIGNS: Temperature 97.8, pulse 66, blood pressure 154/64, respiratory rate 18, saturating 93% on room air. GENERAL: The patient is alert and oriented x1, fairly limited in terms of his interaction during the course of this interview. NECK: Supple. No JVD or scleral icterus noted. CARDIOVASCULAR: Regular rate and rhythm with no discernible murmurs, gallops, or rubs. RESPIRATORY: Clear to auscultation bilaterally with no discernible wheezes or rales. ABDOMEN: Normoactive bowel sounds. Soft, nontender, and nondistended. EXTREMITIES: No cyanosis, clubbing, or edema. LABORATORY DATA: CBC with a white blood cell count of 6, hemoglobin 14.3, hematocrit 45.8, platelets 216. Chemistry with a sodium of 142, potassium 4.9, chloride 109, CO2 of 27, BUN 22, creatinine 1.35, glucose 133, AST 220, ALT 36, alkaline phosphatase 227, total bilirubin 0.8, albumin 3.4 and BNP 189. IMAGING DATA: CT of the abdomen and pelvis obtained on September 26, 2018 showed several new hepatic masses with a mass at the junction between hepatic segments 7 and 8, measuring approximately 4.5 x 5 cm in diameter. More medially at the dome of the liver, there was also another 3 x 4 cm hepatic lesion within segment 8. However, there was a large confluent lobulated mass/lesion within segments 5, 6, 7 and 8 measuring approximately 14.5 x 8.5 cm in diameter. There was also some lymphadenopathy with a celiac lymph node measuring approximately 1.5 cm in diameter, but this was noted without the presence of splenomegaly, adrenal masses and normal pancreas. There were multiple dilated tortuous veins throughout the left upper quadrant of the abdominal cavity consistent with possible varices. No evidence of colonic diverticulitis and no small bowel dilatation. There was also no evidence of ascites; however, the hepatic margin appeared diffusely nodular consistent with cirrhosis. ASSESSMENT AND PLAN: The patient is an 78-year-old male with past medical history of diabetes, hyperlipidemia, hypertension, gastroesophageal reflux disease, benign prostatic hyperplasia, Parkinson disease, and [id number] dementia, presenting with increased weakness and abnormal GI imaging, concerning for metastatic process. Abnormal GI imaging. The patient is presenting initially with complaints of increased somnolence, weakness, diaphoresis and mild coughing that progressively got worse over the last 3-4 days and ultimately required the patient's to call 911 for further evaluation. While in the [place] [facility], he was noted to have a mild transaminase elevation as well as a CT scan showing multiple lesions within multiple hepatic lobes as well as surrounding lymphadenopathy concerning for metastatic disease. At this point, the origin of the liver lesions is unknown, but appears to be hepatocellular carcinoma arising under the setting of cirrhosis of the liver. However, the patient's could not recall when the patient's last colonoscopy was and a colonic primary with metastatic disease to the liver is still within the differential. At this time, further characterization of these lesions is needed prior to undergoing treatment, although given the patient's advanced age, dementia and significant other comorbidities, treatment for this condition may not increase longevity. RECOMMENDATIONS: 1. We would obtain a CT scan of the liver with a multiphasic study (three-phase CT) for further evaluation of possible hepatocellular carcinoma versus metastatic disease from the colon. Given the patient's significant renal dysfunction, I would highly recommend IV fluid administration to help prevent against contrast-induced nephropathy. 2. We would continue to trend patient's LFTs daily for signs of further transaminases and/or liver failure/dysfunction. 3. I will obtain an AFP as well as CEA as part of tumor marker evaluation for possible cancer. 4. Given the possibility of cirrhosis of the liver, also initiate a full liver workup for further evaluation of possible cirrhosis of the liver. 5. Based on the above studies, Oncology may need to be consulted for further evaluation. We will continue to follow. Please call with any questions. Job ID: [id number]
[2018-09-27] MEDS: Primidone 50 MG TAB PO SCH (20:38)
[2018-09-27] MEDS: Rosuvastatin 20 MG TAB PO SCH (20:38)
[2018-09-28 06:49] LABS: #Basophils 0.1 thou/uL (0.0-0.2); #Eosinphils 0.2 thou/uL (0.0-0.7); #Monocytes 0.6 thou/uL (0.11-0.59); #Neutrophils 2.6 thou/uL (1.40-6.50); %Basophils 0.9 % (0.0-1.0); %Eosinophils 3.9 % (0.0-10.0); %Lymphocytes 37.2 % (21.0-51.0); %Monocytes 10.4 % (0.0-10.0); %Neutrophils 47.5 % (42.0-75.0); Mean Corpuscular HGB CONC 31.6 g/dL (32.0-36.0); Mean Corpuscular Hemoglobin 27.8 pg (27.0-31.0); Mean Platelet Volume 9.2 fL (7.4-10.4); Platelet Count 208 thou/uL (130-400); RBC Distribution Width 14.8 % (11.5-14.5); Red Blood Cell (RBC) Count 5.03 mill/uL (4.70-6.10); White Blood Cell (WBC) Count 5.4 thou/uL (4.8-10.8)
[2018-09-28 07:01] LABS: Anion Gap 13 mmol/L (10-20); BUN (Urea Nitrogen) 25 mg/dL (8.4-25.7); Calc. Creatinine Clearance 55 mL/min (70-130); Calcium 9.7 mg/dL (7.8-10.44); Carbon Dioxide 18 mmol/L (23-31); Chloride 108 mmol/L (98-107); Estimated GFR-MDRD 56; Glucose 107 mg/dL (83-110); Potassium 4.1 mmol/L (3.5-5.1); Sodium 135 mmol/L (136-145)
[2018-09-28] MEDS: Fish Oil 1,000 MG CAP PO SCH (08:57)
[2018-09-28] MEDS: Finasteride 5 MG TAB PO SCH (08:57)
[2018-09-28] MEDS: Tamsulosin HCl 0.4 MG CAP PO SCH (08:57)
[2018-09-28] MEDS: Ferrous Sulfate 325 MG TAB PO SCH ×2 (08:58→20:22)
[2018-09-28] MEDS: Citalopram 10 MG TAB PO SCH (08:58)
[2018-09-28] MEDS: Clopidogrel Bisulfate 75 MG TAB PO SCH (08:59)
[2018-09-28] MEDS: Fenofibrate Nanocrystallized 145 MG TAB PO SCH (08:59)
[2018-09-28] MEDS: Insulin Glargine 35 UNITS in Pre-Filled Syringe 1 EACH SC SCH ×2 (09:00→20:22)
[2018-09-28] MEDS: Heparin 5,000 UNITS/ML VIAL SC SCH ×3 (09:00→20:22)
[2018-09-28] MEDS: Sodium Chloride 0.45% 1,000 ML IV SCH (09:01)
[2018-09-28] MEDS: HumaLOG 300 UNITS/3 ML VIAL SC PRN (18:00)
[2018-09-28] MEDS: Primidone 50 MG TAB PO SCH (20:22)
[2018-09-28] MEDS: Rosuvastatin 20 MG TAB PO SCH (20:22)
--- NOTE | 2018-09-28 20:59 | PDOC.PN ---
- Subjective Encounter Start Date: 09/28/18 Encounter Start Time: 11:00 Patient seen and examined for gen weakness. No new complaints. No overnight events - Objective Resuscitation Status - Order Detail: 09/27/18 02:25 Resuscitation Status Routine Resuscitation Status: FULL: Full Resuscitation MAR Reviewed: Yes Vital Signs & Weight: Vital Signs (12 hours) Pulse BP BP Pulse Ox 09/28/18 14:57 64 169/62 H 09/28/18 09:00 164/65 H 93 L Weight Admit Weight 181 lb 4 oz Weight 181 lb 4 oz I&O: 09/27/18 09/28/18 09/29/18 06:59 06:59 06:59 Intake Total 120 2089 1400 Balance 120 208 1400 Result Diagrams: 09/28/18 06:22 09/29/18 05:23 Additional Labs: Accuchecks 09/28/18 09/28/18 09/28/18 20:01 15:28 11:23 POC Glucose 221 H 188 H 197 H 09/28/18 09/27/18 05:40 20:26 POC Glucose 110 231 H Radiology Reviewed by me: Yes (CT abd - Hepatic lesions) Phys Exam - Physical Examination Constitutional: NAD Respiratory: no wheezing, no rhonchi Cardiovascular: RRR, no rub Gastrointestinal: soft, non-tender, positive bowel sounds Musculoskeletal: no edema Neurological: moves all 4 limbs Dx/Plan (1) General weakness Code(s): R53.1 - WEAKNESS Status: Acute Comment: with Abn CT abd findings (2) DM type 2 (diabetes mellitus, type 2) Status: Chronic Qualifiers: 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 Diabetes mellitus complication detail: with chronic kidney disease Chronic kidney disease stage: stage 3 (moderate) Comment: (3) HTN (hypertension) Code(s): I10 - ESSENTIAL (PRIMARY) HYPERTENSION Status: Acute Qualifiers: Hypertension type: essential hypertension Qualified Code(s): I10 - Essential (primary) hypertension (4) BPH (benign prostatic hyperplasia) Code(s): N40.0 - BENIGN PROSTATIC HYPERPLASIA WITHOUT LOWER URINRY TRACT SYMP Status: Chronic Qualifiers: Lower urinary tract symptom presence: unspecified whether lower urinary tract symptoms present Qualified Code(s): N40.0 - Benign prostatic hyperplasia without lower urinary tract symptoms (5) Parkinson disease Code(s): G20 - PARKINSON'S DISEASE Status: Chronic (6) Other issues per previous notes Status: Acute - Plan cont current plan of care, PT/OT, DVT proph w/SCDs Cont current meds as below -: Await w/u for hepatic lesion per GI Review of Systems - Review of Systems Cardiovascular: negative: chest pain, palpitations, orthopnea, paroxysmal nocturnal dyspnea, edema, light headedness, other Gastrointestinal: negative: Nausea, Vomiting, Abdominal Pain, Diarrhea, Constipation, Melena, Hematochezia, Other - Medications/Allergies Allergies/Adverse Reactions: Allergies Allergy/AdvReac Type Severity Reaction Status Date / Time aspirin Allergy Intermediate Anaphylaxis Verified 09/27/18 02:40 iodine Allergy Intermediate Rash Verified 09/27/18 02:40 Latex, Natural Rubber Allergy Intermediate Rash Verified 09/27/18 02:40 Medications: Current Medications Acetaminophen (Tylenol) 650 mg PO Q4H PRN PRN Reason: Headache/Fever/Mild Pain (1-3) Benazepril HCl (Lotensin) 5 mg PO [facility] Last Admin: 09/28/18 08:59 Dose: 5 mg Cholecalciferol (Vitamin D3) 2,000 units PO [facility] Last Admin: 09/28/18 08:57 Dose: 2,000 units Citalopram Hydrobromide (Celexa) 10 mg PO [facility] Last Admin: 09/28/18 08:58 Dose: 10 mg Clopidogrel [facility] (Plavix) [facility] Admin: 09/28/18 08:59 Dose: 75 mg Dextrose/Water (Dextrose 50%) 25 gm SLOW IVP PRN PRN PRN Reason: Hypoglycemia Fenofibrate (Tricor) 145 mg PO DAILY [facility] Last Admin: 09/28/18 08:59 Dose: 145 mg Ferrous Sulfate (Feosol) 325 mg PO BID [facility] Last Admin: 09/28/18 20:22 Dose: 325 mg Finasteride (Proscar) 5 mg PO [facility] Last Admin: 09/28/18 08:57 Dose: 5 mg Fish Oil (Fish Oil) 2,000 [facility] [place] Last Admin: 09/28/18 08:57 Dose: 2,000 mg Glucagon (Glucagon) 1 mg IM PRN PRN PRN Reason: Hypoglycemia Heparin Sodium (Porcine) (Heparin) 5,000 units SC TID [facility] Last Admin: 09/28/18 20:22 Dose: 5,000 units Dextrose/Water (D5w) 1,000 mls @ 0 mls/hr IV .Q0M PRN PRN Reason: Hypoglycemia Insulin Glargine 35 units/ (Miscellaneous Medication) 0.35 mls @ 0 mls/hr SC BID [facility] Last Admin: 09/28/18 20:22 Dose: 0.35 mls Sodium Chloride (1/2 Normal Saline) 1,000 mls @ 50 mls/hr IV .Q20H [facility] Last Admin: 09/28/18 09:01 Dose: 1,000 mls Insulin Human Lispro (Humalog) 0 units SC .MILD SLIDING SCALE PRN PRN Reason: Mild Correctional Scale Last Admin: 09/28/18 18:00 Dose: 2 unit Ondansetron HCl (Zofran) 4 mg IVP Q6H PRN PRN Reason: Nausea/Vomiting Pantoprazole Sodium (Protonix) 40 mg PO QAM [facility] Last Admin: 09/28/18 09:00 Dose: Not Given Pantoprazole Sodium (Protonix) 40 mg PO DAILY [facility] Last Admin: 09/28/18 08:59 Dose: 40 mg Primidone (Mysoline) 200 mg PO [facility] Last Admin: 09/28/18 20:22 Dose: 200 mg Rosuvastatin Calcium (Crestor) 40 mg PO [facility] Last Admin: 09/28/18 20:22 Dose: 40 mg Tamsulosin HCl (Flomax) 0.4 mg PO QAM [facility] Last Admin: 09/28/18 08:57 Dose: 0.4 mg
[2018-09-29] MEDS: Acetaminophen 325 MG TAB PO PRN ×2 (01:22→20:43)
--- NOTE | 2018-09-29 02:17 | PRG ---
DATE OF SERVICE: 09/28/2018 REASON FOR CONSULTATION: Abnormal GI imaging with concern for metastatic hepatocellular carcinoma. SUBJECTIVE: The patient did well overnight with no problems or overt events. Today, the patient was more interactive than yesterday and is able to follow simple commands as well as contribute some meaningful information as to his current clinical status. Currently, denies any nausea, vomiting, abdominal pain, or GI bleeding. OBJECTIVE: VITAL SIGNS: Temperature 98.2, pulse 59, blood pressure 168/55, respiratory rate 16, and saturating 94% on room air. GENERAL: The patient was lying in bed, in no acute distress. Alert and oriented x1. CARDIOVASCULAR: Regular rate and rhythm. RESPIRATORY: Clear to auscultation bilaterally. ABDOMEN: Normoactive bowel sounds. Soft, nontender, and nondistended. EXTREMITIES: No cyanosis, clubbing, or edema. LABORATORY DATA: CBC with a white blood cell count of 5.4, hemoglobin 14, hematocrit 44.2, and platelets 208. Chemistry with a sodium of 135, potassium 4.1, chloride 108, CO2 of 18, BUN 25, creatinine 1.25, and glucose 107. CEA 3.35. IMAGING DATA: No current GI imaging is available for review. ASSESSMENT AND PLAN: The patient is an 78-year-old male with past medical history of diabetes, hyperlipidemia, hypertension, gastroesophageal reflux disease, BPH, Parkinson disease, and pfvylerq-[id number] dementia, presenting with increased weakness and abnormal GI imaging, concerning for metastatic process. Abnormal GI imaging. The patient is presenting with complaints of increased somnolence, weakness, diaphoresis, and mild cough that progressively worsened over the 3 to 4 days prior to admission. On admission to the hospital, he had a CT scan showing multiple lesions within multiple hepatic lobes as well as surrounding lymphadenopathy concerning for metastatic disease. At this point, the origin of his liver lesions are unknown, but based on CT appearance, it appeared to be hepatocellular carcinoma arising under the setting of cirrhosis of the liver. Given the CEA at a normal level, the possibility of a colonic primary is less likely at this time, but further characterization of his liver lesions is needed with a multiphasic study. He has currently been undergoing IV fluid administration with improvement of his BUN and creatinine with the hopes of improving to the point where he can tolerate a contrast study without increased risk of contrast-induced nephropathy. RECOMMENDATIONS: 1. We would obtain a CT scan of the liver via multiphasic study (three-phase CT) for further characterization of possible hepatocellular carcinoma versus metastatic disease. 2. We would continue IV fluid administration to help prevent against contrast-induced nephropathy. 3. We would continue to trend LFTs daily as well as INR for signs of further transaminitis or liver dysfunction. 4. We will follow up on AFP as possible marker for hepatocellular carcinoma. 5. Based on the above studies, Oncology may need to be consulted for further evaluation. We will continue to follow. Please call with any questions. Job ID: [id number]
[2018-09-29] MEDS: Sodium Chloride 0.45% 1,000 ML IV SCH ×3 (05:23→22:21)
[2018-09-29 06:11] LABS: Anion Gap 13 mmol/L (10-20); BUN (Urea Nitrogen) 24 mg/dL (8.4-25.7); Calc. Creatinine Clearance 54 mL/min (70-130); Calcium 9.6 mg/dL (7.8-10.44); Carbon Dioxide 22 mmol/L (23-31); Chloride 105 mmol/L (98-107); Estimated GFR-MDRD 55; Iron 41 ug/dL (65-175); Iron Binding Capacity, Total 286 mcg/dL (261-462); Sodium 136 mmol/L (136-145)
[2018-09-29 06:15] LABS: Glucose 57 mg/dL (83-110)
[2018-09-29 06:27] LABS: Ferritin 124.21 ng/mL (22-322)
[2018-09-29 06:39] LABS: HBSAB Concentration 1.17 mIU/mL; HBSAg Index 0.19 S/CO (0-0.99); Hep B Core Total Ab Non-Reactive (NonReactive); Hep B Core Total Index 0.07 S/CO (0-0.79); Hep B Surf AB Non-Reactive (NonReactive); Hep B Surf Ag Non-Reactive S/CO (NonReactive); Hep C IgG Ab Non-Reactive (NonReactive)
[2018-09-29] MEDS: Tamsulosin HCl 0.4 MG CAP PO SCH (08:33)
[2018-09-29] MEDS: Fish Oil 1,000 MG CAP PO SCH (08:33)
[2018-09-29] MEDS: Ferrous Sulfate 325 MG TAB PO SCH ×2 (08:33→20:44)
[2018-09-29] MEDS: Fenofibrate Nanocrystallized 145 MG TAB PO SCH (08:33)
[2018-09-29] MEDS: Finasteride 5 MG TAB PO SCH (08:33)
[2018-09-29] MEDS: Clopidogrel Bisulfate 75 MG TAB PO SCH (08:33)
[2018-09-29] MEDS: Citalopram 10 MG TAB PO SCH (08:33)
[2018-09-29] MEDS: Heparin 5,000 UNITS/ML VIAL SC SCH ×3 (08:34→20:44)
[2018-09-29] MEDS ORDERED: Gadobenate Dimeglumine 529 MG/1 ML (20ML VIAL) ONE (10:19)
--- NOTE | 2018-09-29 10:27 | PDOC.PN ---
- Subjective Encounter Start Date: 09/29/18 Encounter Start Time: 10:25 -: non-verbal Subjective: Doesn't appear to be in any distress. Shaking head yes/no to some questions -: Denies any pain. No n/v. No chest pain or sob. Difficult to assess. -: No family at bedside. Attempted to call , no answer. - Objective Resuscitation Status - Order Detail: 09/27/18 02:25 Resuscitation Status Routine Resuscitation Status: FULL: Full Resuscitation Vital Signs & Weight: Vital Signs (12 hours) Temp Pulse Resp BP BP Pulse Ox 09/29/18 08:34 146/67 H 09/29/18 08:12 97.7 F 55 L 20 146/67 H 96 09/29/18 04:00 97.6 F 58 L 18 170/72 H 94 L Weight Admit Weight 181 lb 4 oz Weight 181 lb 4 oz I&O: 09/28/18 09/29/18 09/30/18 06:59 06:59 06:59 Intake Total 2088 2703 240 Balance 2088 2703 240 Result Diagrams: 09/28/18 06:22 09/29/18 05:23 Additional Labs: Accuchecks 09/29/18 09/29/18 09/28/18 06:13 05:31 20:01 POC Glucose 98 59 L* 221 H 09/28/18 09/28/18 15:28 11:23 POC Glucose 188 H 197 H Phys Exam - Physical Examination Constitutional: NAD Patient found sat upright, eating breakfast. HEENT: PERRLA, oral pharynx no lesions Neck: supple, full ROM Respiratory: clear to auscultation bilateral Cardiovascular: RRR Gastrointestinal: soft, non-tender, no distention, positive bowel sounds Musculoskeletal: no edema, pulses present Deviation from normal: Nonverbal. Known dementia. Shakes head yes/no to some questions. Dx/Plan (1) Lesion of liver Code(s): K76.9 - LIVER DISEASE, UNSPECIFIED Status: Acute (2) General weakness Code(s): R53.1 - WEAKNESS Status: Acute Comment: with Abn CT abd findings (3) Parkinson disease Code(s): G20 - PARKINSON'S DISEASE Status: Chronic (4) HTN (hypertension) Code(s): I10 - ESSENTIAL (PRIMARY) HYPERTENSION Status: Chronic Qualifiers: Hypertension type: essential hypertension Qualified Code(s): I10 - Essential (primary) hypertension (5) History of CVA (cerebrovascular accident) Code(s): Z86.73 - PRSNL HX OF TIA (TIA), AND CEREB INFRC W/O RESID DEFICITS Status: Chronic Comment: Unchanged. (6) BPH (benign prostatic hyperplasia) Code(s): N40.0 - BENIGN PROSTATIC HYPERPLASIA WITHOUT LOWER URINRY TRACT SYMP Status: Chronic Qualifiers: Lower urinary tract symptom presence: unspecified whether lower urinary tract symptoms present Qualified Code(s): N40.0 - Benign prostatic hyperplasia without lower urinary tract symptoms (7) DM type 2 (diabetes mellitus, type 2) Status: Chronic Qualifiers: Diabetes mellitus custodial insulin use: with custodial use Diabetes mellitus complication detail: with chronic kidney disease Chronic kidney disease stage: stage 3 (moderate) Comment: (8) Dyslipidemia Code(s): E78.5 - HYPERLIPIDEMIA, UNSPECIFIED Status: Chronic Comment: Continue fenofibrate. - Plan cont current plan of care, PT/OT Dr. Sierra following, CT w/wo contrast cancelled due to iodine allergy. -: MRI Abdomen requested instead. Oncology consult if confirms liver mets. -: Awaiting rehab screening and palliative care consult. -: Continue home meds. Monitor BP and glucose. * pt seen an examined agree with assessment and plan * * vs stable * lungs: clear on auscultation * cv: s1s2 present no murmurs * * a/p pt is a 78y/o male who comes in with weakness. spoke with pt's and updated her. will wait for abd of MRI results. pt's AFP is very high. Review of Systems - Review of Systems Constitutional: negative: fever, chills, sweats, weakness, malaise, other Cardiovascular: negative: chest pain Gastrointestinal: negative: Nausea, Vomiting, Abdominal Pain - Medications/Allergies Allergies/Adverse Reactions: Allergies Allergy/AdvReac Type Severity Reaction Status Date / Time aspirin Allergy Intermediate Anaphylaxis Verified 09/27/18 02:40 iodine Allergy Intermediate Rash Verified 09/27/18 02:40 Latex, Natural Rubber Allergy Intermediate Rash Verified 09/27/18 02:40 Medications: Current Medications Acetaminophen (Tylenol) 650 mg PO Q4H PRN PRN Reason: Headache/Fever/Mild Pain (1-3) Last Admin: 09/29/18 01:22 Dose: 650 mg Benazepril HCl (Lotensin) 5 mg PO [facility] Last Admin: 09/29/18 08:34 Dose: 5 mg Cholecalciferol (Vitamin D3) 2,000 units PO [facility] Last Admin: 09/29/18 08:33 Dose: 2,000 units Citalopram Hydrobromide (Celexa) 10 mg PO [facility] Last Admin: 09/29/18 08:33 Dose: 10 mg Clopidogrel Bisulfate (Plavix) 75 mg PO [facility] Last Admin: 09/29/18 08:33 Dose: 75 mg Dextrose/Water (Dextrose 50%) 25 gm SLOW IVP PRN PRN PRN Reason: Hypoglycemia Fenofibrate (Tricor) 145 mg PO DAILY [facility] Last Admin: 09/29/18 08:33 Dose: 145 mg Ferrous Sulfate (Feosol) 325 mg PO BID [facility] Last Admin: 09/29/18 08:33 Dose: 325 mg Finasteride (Proscar) 5 mg PO [facility] Last Admin: 09/29/18 08:33 Dose: 5 mg Fish Oil (Fish Oil) 2,000 mg PO [facility] Last Admin: 09/29/18 08:33 Dose: 2,000 mg Glucagon (Glucagon) 1 mg IM PRN PRN PRN Reason: Hypoglycemia Heparin Sodium (Porcine) (Heparin) 5,000 units SC TID [facility] Last Admin: 09/29/18 08:34 Dose: 5,000 units Dextrose/Water (D5w) 1,000 mls @ 0 mls/hr IV .Q0M PRN PRN Reason: Hypoglycemia Sodium Chloride (1/2 Normal Saline) 1,000 mls @ 75 mls/hr IV .[id number] [facility] Last Admin: 09/29/18 08:32 Dose: 1,000 mls Insulin Human Lispro (Humalog) 0 units SC .MILD SLIDING SCALE PRN PRN Reason: Mild Correctional Scale Last Admin: 09/28/18 18:00 Dose: 2 unit Ondansetron HCl (Zofran) 4 mg IVP Q6H PRN PRN Reason: Nausea/Vomiting Pantoprazole Sodium (Protonix) 40 mg PO [facility] Last Admin: 09/29/18 08:34 Dose: 40 mg Pantoprazole Sodium (Protonix) 40 mg PO DAILY [facility] Last Admin: 09/29/18 08:53 Dose: Not Given Primidone (Mysoline) 200 mg PO HS [facility] Last Admin: 09/28/18 20:22 Dose: 200 mg Rosuvastatin Calcium (Crestor) 40 mg PO [facility] Last Admin: 09/28/18 20:22 Dose: 40 mg Tamsulosin HCl (Flomax) 0.4 mg PO [facility] Last Admin: 09/29/18 08:33 Dose: 0.4 mg
[2018-09-29] MEDS ORDERED: Loperamide HCl 2 MG CAP PO PRN (19:42)
[2018-09-29] MEDS: Primidone 50 MG TAB PO SCH (20:43)
[2018-09-29] MEDS: Rosuvastatin 20 MG TAB PO SCH (20:44)
--- NOTE | 2018-09-29 22:41 | PRG ---
DATE OF SERVICE: 09/29/2018 REASON FOR CONSULTATION: Abnormal GI imaging. SUBJECTIVE: The patient did well overnight with no acute events or problems per nursing staff. This morning, the patient was interactive and able to answer simple questions as well as nodded his head to affirmative and negative, although his responses seemed slowed and somewhat distant. Currently, denies any nausea, vomiting, abdominal pain, or GI bleeding. OBJECTIVE: VITAL SIGNS: Temperature 97.6, pulse 78, blood pressure 176/79, respiratory rate 20, saturating 92% on room air. GENERAL: The patient is lying in bed, in no acute distress. Alert and oriented x1. CARDIOVASCULAR: Regular rate and rhythm. RESPIRATORY: Clear to auscultation bilaterally. ABDOMEN: Normoactive bowel sounds. Soft, nontender, nondistended. EXTREMITIES: No cyanosis, clubbing, or edema. LABORATORY DATA: Chemistry with a sodium of 136, potassium 4, chloride 105, CO2 of 22, BUN 24, creatinine 1.27, glucose 57, iron 41, ferritin 124, TIBC 286. IMAGING DATA: No current GI imaging is available for review, although MRI of the liver has been ordered. ASSESSMENT AND PLAN: The patient is an 78-year-old male with past medical history of diabetes, hyperlipidemia, hypertension, gastroesophageal reflux disease, BPH, Parkinson's disease, and [id number] dementia, presenting with increased weakness and abnormal gastrointestinal imaging concerning for malignant processes. Abnormal gastrointestinal imaging. The patient initially presented with complaints of increased somnolence, weakness, diaphoresis, and mild cough that was progressively worsening prior to admission. On admission to the hospital, he had a CT scan showing multiple lesions within the hepatic lobes as well as surrounding lymphadenopathy concerning for malignancy. At this point, he has tumor markers that are negative for a colonic malignancy with the CT findings more consistent with hepatocellular carcinoma, but the likelihood of hepatocellular carcinoma arising outside the setting of cirrhosis is less likely and I would like to confirm this prior to further evaluation with a multiphasic study of the liver. It should give a better idea as to whether or not this is metastatic disease from an unknown primary or this is hepatocellular carcinoma that is arising de von within the liver. RECOMMENDATIONS: 1. We will follow up on the multiphasic MRI study that was obtained earlier today (CT scan could not be obtained due to patient's iodine allergy). 2. Continue with IV fluid administration to help prevent against contrast-induced nephropathy. 3. Continue to trend LFTs daily as well as INR for signs of further transaminitis or liver dysfunction. 4. Followup on AFP as possible marker for hepatocellular carcinoma. We will continue to follow. Please call with any questions. Job ID: [id number]
[2018-09-30] MEDS: Sodium Chloride 0.45% 1,000 ML IV SCH ×2 (00:11→11:43)
[2018-09-30 07:35] LABS: #Basophils 0.1 thou/uL (0.0-0.2); #Eosinphils 0.3 thou/uL (0.0-0.7); #Lymphocytes 1.4 thou/uL (1.20-3.40); #Monocytes 0.6 thou/uL (0.11-0.59); #Neutrophils 2.4 thou/uL (1.40-6.50); %Basophils 1.4 % (0.0-1.0); %Eosinophils 5.8 % (0.0-10.0); %Lymphocytes 30.4 % (21.0-51.0); %Neutrophils 50.4 % (42.0-75.0); Hemoglobin 14.3 g/dL (14.0-18.0); Mean Corpuscular HGB CONC 31.5 g/dL (32.0-36.0); Mean Corpuscular Hemoglobin 27.8 pg (27.0-31.0); Mean Corpuscular Volume 88.2 fL (78.0-98.0); Mean Platelet Volume 9.3 fL (7.4-10.4); Platelet Count 195 thou/uL (130-400); RBC Distribution Width 14.6 % (11.5-14.5); Red Blood Cell (RBC) Count 5.16 mill/uL (4.70-6.10); White Blood Cell (WBC) Count 4.7 thou/uL (4.8-10.8)
[2018-09-30 08:03] LABS: ALT (SGPT) 35 U/L (8-55); AST (SGOT) 161 U/L (5-34); Albumin 3.1 g/dL (3.4-4.8); Alkaline Phosphatase 201 U/L (40-150); Anion Gap 13 mmol/L (10-20); BUN (Urea Nitrogen) 23 mg/dL (8.4-25.7); Bilirubin, Total 0.8 mg/dL (0.2-1.2); Calc. Creatinine Clearance 51 mL/min (70-130); Calcium 9.7 mg/dL (7.8-10.44); Carbon Dioxide 22 mmol/L (23-31); Chloride 105 mmol/L (98-107); Estimated GFR-MDRD 51; Globulin 4.5 g/dL (2.4-3.5); Glucose 88 mg/dL (83-110); Potassium 4.3 mmol/L (3.5-5.1); Protein, Total 7.6 g/dL (5.8-8.1); Sodium 136 mmol/L (136-145)
[2018-09-30] MEDS: Clopidogrel Bisulfate 75 MG TAB PO SCH (08:47)
[2018-09-30] MEDS: Citalopram 10 MG TAB PO SCH (08:47)
[2018-09-30] MEDS: Tamsulosin HCl 0.4 MG CAP PO SCH (08:47)
[2018-09-30] MEDS: Fish Oil 1,000 MG CAP PO SCH (08:47)
[2018-09-30] MEDS: Finasteride 5 MG TAB PO SCH (08:47)
[2018-09-30] MEDS: Fenofibrate Nanocrystallized 145 MG TAB PO SCH (08:48)
[2018-09-30] MEDS: Ferrous Sulfate 325 MG TAB PO SCH ×2 (08:48→20:53)
[2018-09-30] MEDS: Heparin 5,000 UNITS/ML VIAL SC SCH ×3 (08:51→20:53)
--- NOTE | 2018-09-30 09:59 | MRI ---
MRI ABDOMEN WITH AND WITHOUT IV CONTRAST: HISTORY: Liver mass. Elevated LFTs. FINDINGS: Correlation is made with the CT abdomen and pelvis of 09/26/2018. The exam was limited due to motion artifact, particularly on the postcontrast images limiting the alicia lity of the exam. Masses of the liver are again noted. The mass in the posteromedial aspect of the right lobe of the l iver demonstrates hyperenhancement on the early postcontrast images and is better visualized compared to the CT scan and measures about 3.4 cm. An adjacent 15 mm hyperenhancing lesion is also better vi sualized on the MRI. The remainder of the liver masses are again seen. Changes of hepatic cirrhosis and splenomegaly are again seen. The spleen measures 15 cm in length. The 1.5 cm enlarged celiac l ymph node is redemonstrated. Varicosity in the left upper quadrant is noted again. No ascites is seen. The pancreas, adrenal glands, and left kidney are normal. A tiny cyst is seen i n the right kidney. The bone marrow signal is normal. No gallstones are seen. There is no evidence of aneurysmal dilatation of the abdominal aorta. IMPRESSION: 1. Liver masses suspicious for malignancy/metastatic disease. Correlation with serum protein level is recommended. 2. Hepatic cirrhosis. 3. Splenomegaly. POS: [facility]
--- NOTE | 2018-09-30 16:37 | PDOC.PN ---
- Subjective Encounter Start Date: 09/30/18 Encounter Start Time: 10:30 Subjective: pt up in bed no complains - Objective Resuscitation Status - Order Detail: 09/27/18 02:25 Resuscitation Status Routine Resuscitation Status: FULL: Full Resuscitation Vital Signs & Weight: Vital Signs (12 hours) Temp Pulse Resp BP BP Pulse Ox 09/30/18 11:56 97.9 F 60 18 153/59 H 95 09/30/18 08:48 138/65 09/30/18 08:00 93 L 09/30/18 07:39 97.9 F 69 18 138/65 93 L Weight Admit Weight 181 lb 4 oz Weight 181 lb 4 oz I&O: 09/29/18 09/30/18 10/01/18 06:59 06:59 06:59 Intake Total 2703 1495 Balance 2703 1495 Result Diagrams: 09/30/18 07:09 09/30/18 07:09 Additional Labs: Accuchecks 09/30/18 09/30/18 09/29/18 11:37 05:33 20:58 POC Glucose 173 H 84 156 H 09/29/18 09/27/18 17:27 11:06 POC Glucose 132 H 248 H Phys Exam - Physical Examination Neck: no nodes, no JVD, supple, full ROM Respiratory: no wheezing, no rales, no rhonchi, wheezing present, clear to auscultation bilateral Cardiovascular: RRR, no significant murmur, no rub, gallop, irregular Gastrointestinal: soft, non-tender, no distention, positive bowel sounds Dx/Plan (1) Lesion of liver Code(s): K76.9 - LIVER DISEASE, UNSPECIFIED Status: Acute (2) General weakness Code(s): R53.1 - WEAKNESS Status: Acute Comment: with Abn CT abd findings (3) Parkinson disease Code(s): G20 - PARKINSON'S DISEASE Status: Chronic (4) HTN (hypertension) Code(s): I10 - ESSENTIAL (PRIMARY) HYPERTENSION Status: Chronic Qualifiers: Hypertension type: essential hypertension Qualified Code(s): I10 - Essential (primary) hypertension (5) History of CVA (cerebrovascular accident) Code(s): Z86.73 - PRSNL HX OF TIA (TIA), AND CEREB INFRC W/O RESID DEFICITS Status: Chronic Comment: Unchanged. (6) BPH (benign prostatic hyperplasia) Code(s): N40.0 - BENIGN PROSTATIC HYPERPLASIA WITHOUT LOWER URINRY TRACT SYMP Status: Chronic Qualifiers: Lower urinary tract symptom presence: unspecified whether lower urinary tract symptoms present Qualified Code(s): N40.0 - Benign prostatic hyperplasia without lower urinary tract symptoms (7) DM type 2 (diabetes mellitus, type 2) Status: Chronic Qualifiers: Diabetes mellitus draft roller picker insulin use: with senior care use Diabetes mellitus complication detail: with chronic kidney disease Chronic kidney disease stage: stage 3 (moderate) Comment: (8) Dyslipidemia Code(s): E78.5 - HYPERLIPIDEMIA, UNSPECIFIED Status: Chronic Comment: Continue fenofibrate. - Plan MRI abd indicated hepatic cancer -: elevated afp -: oncology consulted. * . Review of Systems - Review of Systems Respiratory: negative: Cough, Dry, Shortness of Breath, Hemoptysis, SOB with Excertion, Pleuritic Pain, Sputum, Wheezing Cardiovascular: negative: chest pain, palpitations, orthopnea, paroxysmal nocturnal dyspnea, edema, light headedness, other Gastrointestinal: negative: Nausea, Vomiting, Abdominal Pain, Diarrhea, Constipation, Melena, Hematochezia, Other Genitourinary: negative: Dysuria, Frequency, Incontinence, Hematuria, Retention , Other - Medications/Allergies Allergies/Adverse Reactions: Allergies Allergy/AdvReac Type Severity Reaction Status Date / Time aspirin Allergy Intermediate Anaphylaxis Verified 09/27/18 02:40 iodine Allergy Intermediate Rash Verified 09/27/18 02:40 Latex, Natural Rubber Allergy Intermediate Rash Verified 09/27/18 02:40 Medications: Current Medications Acetaminophen (Tylenol) 650 mg PO Q4H PRN PRN Reason: Headache/Fever/Mild Pain (1-3) Last Admin: 09/29/18 20:43 Dose: 650 mg Benazepril HCl (Lotensin) 5 mg PO [facility] Last Admin: 09/30/18 08:48 Dose: 5 mg Cholecalciferol (Vitamin D3) 2,000 units PO [facility] Last Admin: 09/30/18 08:46 Dose: 2,000 units Citalopram Hydrobromide (Celexa) 10 mg PO [facility] Last Admin: 09/30/18 08:47 Dose: 10 mg Clopidogrel Bisulfate (Plavix) 75 mg PO [facility] Last Admin: 01/21/19 08:47 Dose: 75 mg Dextrose/Water (Dextrose 50%) 25 gm SLOW IVP PRN PRN PRN Reason: Hypoglycemia Fenofibrate (Tricor) 145 mg PO DAILY [facility] Last Admin: 09/30/18 08:48 Dose: 145 mg Ferrous Sulfate (Feosol) 325 mg PO BID [facility] Last Admin: 09/30/18 08:48 Dose: 325 mg Finasteride (Proscar) 5 mg PO [facility] Last Admin: 09/30/18 08:47 Dose: 5 mg Fish Oil (Fish Oil) [facility] [place] Last Admin: 09/30/18 08:47 Dose: 2,000 mg Glucagon (Glucagon) 1 mg IM PRN PRN PRN Reason: Hypoglycemia Heparin Sodium (Porcine) (Heparin) 5,000 units SC TID [facility] Last Admin: 09/30/18 15:20 Dose: 5,000 units Dextrose/Water (D5w) 1,000 mls @ 0 mls/hr IV .Q0M PRN PRN Reason: Hypoglycemia Insulin Human Lispro (Humalog) 0 units SC .MILD SLIDING SCALE PRN PRN Reason: Mild Correctional Scale Last Admin: 09/28/18 18:00 Dose: 2 unit Loperamide HCl (Imodium) 2 mg PO PRN PRN PRN Reason: Diarrhea/Loose Stools Last Admin: 09/29/18 20:44 Dose: 2 mg Ondansetron HCl (Zofran) 4 mg IVP Q6H PRN PRN Reason: Nausea/Vomiting Pantoprazole Sodium (Protonix) 40 mg PO [facility] Last Admin: 09/30/18 08:47 Dose: 40 mg Pantoprazole Sodium (Protonix) 40 mg PO DAILY [facility] Last Admin: 09/30/18 08:51 Dose: Not Given Primidone (Mysoline) 200 mg PO [facility] Last Admin: 09/29/18 20:43 Dose: 200 mg Rosuvastatin Calcium (Crestor) 40 mg PO [facility] Last Admin: 09/29/18 20:44 Dose: 40 mg Tamsulosin HCl (Flomax) 0.4 mg PO [facility] Last Admin: 09/30/18 08:47 Dose: 0.4 mg
[2018-09-30] MEDS ORDERED: Nystatin Powder 15 GM BOT TOP PRN (17:36)
[2018-09-30] MEDS ORDERED: Benzonatate 100 MG CAP PO PRN (17:36)
[2018-09-30] MEDS: Primidone 50 MG TAB PO SCH (20:52)
[2018-09-30] MEDS: Rosuvastatin 20 MG TAB PO SCH (20:53)
[2018-09-30] MEDS: HumaLOG 300 UNITS/3 ML VIAL SC PRN (20:54)
--- NOTE | 2018-09-30 21:51 | CON ---
DATE OF CONSULTATION: REASON FOR CONSULT: Liver lesions. HISTORY OF PRESENT ILLNESS: Mr. Contreras is an 78-year-old gentleman with past medical history of dementia, Parkinson's, diabetes, hypertension, who came to the hospital after progressive weakness for the last month. states that he used to be able to get up and walk around the house, but he has gotten progressively weak where he is unable to stand and has had multiple falls. She states he has a poor appetite and has lost over 10 pounds. She states his dementia is intermittent, there are days where he is more engaged. However, most of the time he withdraws. He has trouble feeding himself secondary to his Parkinson's. She denies any bleeding, chest pain, or shortness of breath. In the emergency room, the patient had an abdominal and pelvis CT. There were several liver lesions. On the right lower lobe, there was a 4.5 x 5 x 4.5 cm mass. There was another lesion measuring 3 x 4 x 3.5. There was a lobulated confluent mass measuring 14.5 x 8.5 x 12 cm. There was a 1.5 x 1.5 x 1.5 cm celiac lymph node, enlarged. Hepatic cirrhosis was noted. Mild splenomegaly. An AFP was performed, which was diagnostic at 135,000. We were asked to see the patient regarding treatment recommendations. PAST MEDICAL HISTORY: 1. Parkinson disease. 2. Dementia. 3. Diabetes. 4. Hyperlipidemia. 5. Hypertension. 6. GERD. 7. BPH. 8. Depression. PAST SURGICAL HISTORY: Skin lesion removal. ALLERGIES: TO ASPIRIN AND IODINE. HOME MEDICATIONS: 1. Benazepril daily. 2. Vitamin D daily. 3. Citalopram 10 mg daily. 4. Plavix 75 mg daily. 5. Fenofibrate 145 mg daily. 6. Iron 240 mg t.i.d. 7. Finasteride 5 mg daily. 8. Insulin daily. 9. Prilosec 40 mg daily. 10. Mysoline daily. 11. Rosuvastatin daily. 12. Flomax daily. 13. Multivitamin daily. FAMILY HISTORY: No known history of liver disease or cancers. SOCIAL HISTORY: He is , has three children. Lives with his . No alcohol, tobacco, or illicit drug use. REVIEW OF SYSTEMS: Unable to obtain secondary to dementia. PHYSICAL EXAMINATION: VITAL SIGNS: Temperature is 97.9, pulse is 60, respiratory rate 18, BP is 153/ 59. She is 95% on room air. GENERAL: A chronically ill-appearing male, in no acute distress. HEENT: Normocephalic, atraumatic. Pupils are equal and reactive to light. NECK: Supple. CV: Regular rate and rhythm. LUNGS: Clear. ABDOMEN: Soft, nontender. Bowel sounds are positive. There is no hepatosplenomegaly palpable. EXTREMITIES: No clubbing, cyanosis, or edema. SKIN: He has a rosacea-like rash on his face. HEMATOLOGICAL: There are no petechiae or purpura. NEUROLOGICAL: He has rigidity, nonverbal. PSYCH: The patient is unable to decide or answer my questions. PERTINENT LABS AND X-RAYS: Current WBC is 4.7, hemoglobin 14.3, hematocrit 45.5 , platelet count is 195,000, 50% neutrophils, 30% lymphocytes, 12% monocytes. Sodium is 136, potassium 4.3, chloride 105, CO2 is 22, BUN is 23, creatinine 1.35, calcium is 9.7, total bilirubin is 0.8, AST is 161, ALT is 35, alkaline phosphatase is 201. Serum total protein is 7.6, albumin 3.1, globulin 4.5, AFP is 135,648.4. ASSESSMENT: 1. 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 Discussion, moderate severe dementia. 2. Parkinson's. 3. ECOG of 3. DISCUSSION: Patient's son arrived during conversation with . The patient would not answer my questions and unable to understand the extent of his disease process. we discussed treatment with oral chemotherapy and side effects including fatigue, nausea, weakness, immunosuppression. The patient has moderate-severe dementia, large tumor burden, and poor performance status with an ECOG of 3. He is not a candidate for chemotherapy. Recommended hospice. Case was discussed with Dr. Ortega, who agrees with plan. Recommendation was discussed in room with patient, , and son. Palliative care team and bilingual patient support caseworker will be notified of assistance with hospice. Thank you for the consult. Job ID: [id number] MTDD
--- NOTE | 2018-09-30 22:56 | PRG ---
DATE OF SERVICE: 09/30/2018 REASON FOR CONSULTATION: Abnormal GI imaging. SUBJECTIVE: The patient did well overnight with no acute events or problems. Per the patient's and nursing staff, he has been able to eat the vast majority of his meals without difficulty. This morning, he was fairly interactive, able to talk in short sentences and follow simple commands, although his responses still seem slowed and somewhat distant. Currently, denies any nausea, vomiting, abdominal pain, or GI bleeding. OBJECTIVE: VITAL SIGNS: Temperature 98.1, pulse 83, blood pressure 163/83, respiratory rate 20, saturating 92% on room air. GENERAL: The patient is lying in bed, in no acute distress, alert and oriented x1. CARDIOVASCULAR: Regular rate and rhythm. RESPIRATORY: Clear to auscultation bilaterally. ABDOMEN: Normoactive bowel sounds. Soft, nontender, nondistended. EXTREMITIES: No cyanosis, clubbing, or edema. LABORATORY DATA: CBC with a white blood cell count 4.7, hemoglobin 14.3, hematocrit 45.5, and platelets 195. Chemistry with a sodium of 136, potassium 4.3, chloride 105, CO2 of 22, BUN 23, creatinine 1.35, glucose 88, AST 161, ALT 35, alkaline phosphatase 201, total bilirubin 0.8. AST 135,648. IMAGING DATA: MRI performed on September 29, 2018, showed multiple liver masses located throughout the liver demonstrating hyperenhancement in the early precontrast images images could not be accurately interpreted due to motion artifact. It did display some cirrhotic morphology, as well as splenomegaly concerning for portal hypertension. ASSESSMENT AND PLAN: The patient is an 78-year-old male with past medical history of diabetes, hyperlipidemia, hypertension, gastroesophageal reflux disease, BPH, Parkinson disease and tuntinlc-hv-csgxas dementia, presenting with increased weakness and abnormal GI imaging concerning for malignant process. Abnormal GI imaging. The patient initially presented with complaints of increased somnolence, weakness, diaphoresis and mild cough that have been progressively worsening prior to admission. However, during this hospitalization, the symptoms have seemed to tayla. Currently doing well with no acute problems. However, on initial admission, he was noted to have a CT scan showing multiple lesions within the hepatic lobes as well as surrounding lymphadenopathy concerning for malignancy. Followup imaging with a multiphasic MRI showed hyperenhancement of multiple hepatic masses that were hyperenhancing concerning for hepatocellular carcinoma. Given a significantly elevated alpha fetoprotein at approximately 135,000, the likelihood of hepatocellular carcinoma is very high. At this point given the multifocal nature of his HCC, liver transplant is not currently an option (this is also due to advanced age and severe dementia). At this time, the primary mode of treatment would possibly be chemotherapy with sorafenib per the Oncology Service but given that this is a primarily palliative measure, ultimate prognosis is poor. RECOMMENDATIONS: 1. We would continue IV fluid administration for the next 24 hours to help prevent against contrast-induced nephropathy. 2. We would continue to trend LFTs, as well as INR for signs of further transaminitis or hepatic failure while inpatient. 3. We will consult Oncology Service for options available for possible treatment of multifocal hepatocellular carcinoma. 4. We would strongly consider placement of patient on hospice given the multifocal nature of his hepatocellular carcinoma, advanced age and advanced dementia. We will sign off at this time. Please call with any additional questions. Job ID: [id number]
[2018-10-01 06:06] LABS: #Basophils 0.1 thou/uL (0.0-0.2); #Eosinphils 0.2 thou/uL (0.0-0.7); #Lymphocytes 1.9 thou/uL (1.20-3.40); #Monocytes 0.7 thou/uL (0.11-0.59); #Neutrophils 3.4 thou/uL (1.40-6.50); %Basophils 1.3 % (0.0-1.0); %Eosinophils 3.1 % (0.0-10.0); %Monocytes 11.1 % (0.0-10.0); %Neutrophils 54.6 % (42.0-75.0); Hemoglobin 14.8 g/dL (14.0-18.0); Mean Corpuscular HGB CONC 31.8 g/dL (32.0-36.0); Mean Corpuscular Hemoglobin 27.7 pg (27.0-31.0); Mean Corpuscular Volume 87.2 fL (78.0-98.0); Mean Platelet Volume 9.6 fL (7.4-10.4); Platelet Count 218 thou/uL (130-400); RBC Distribution Width 14.8 % (11.5-14.5); Red Blood Cell (RBC) Count 5.36 mill/uL (4.70-6.10); White Blood Cell (WBC) Count 6.2 thou/uL (4.8-10.8)
[2018-10-01 06:27] LABS: ALT (SGPT) 34 U/L (8-55); AST (SGOT) 157 U/L (5-34); Albumin 3.3 g/dL (3.4-4.8); Alkaline Phosphatase 231 U/L (40-150); Anion Gap 12 mmol/L (10-20); BUN (Urea Nitrogen) 25 mg/dL (8.4-25.7); Bilirubin, Total 0.7 mg/dL (0.2-1.2); Calc. Creatinine Clearance 47 mL/min (70-130); Carbon Dioxide 22 mmol/L (23-31); Chloride 105 mmol/L (98-107); Estimated GFR-MDRD 47; Globulin 4.7 g/dL (2.4-3.5); Glucose 157 mg/dL (83-110); Potassium 4.2 mmol/L (3.5-5.1); Sodium 135 mmol/L (136-145)
[2018-10-01 07:52] VITALS: BP 151/63; TEMP 98.2
[2018-10-01] MEDS: Citalopram 10 MG TAB PO SCH (08:59)
[2018-10-01] MEDS: Tamsulosin HCl 0.4 MG CAP PO SCH (08:59)
[2018-10-01] MEDS: Fish Oil 1,000 MG CAP PO SCH (08:59)
[2018-10-01] MEDS: Ferrous Sulfate 325 MG TAB PO SCH (08:59)
[2018-10-01] MEDS: Clopidogrel Bisulfate 75 MG TAB PO SCH (08:59)
[2018-10-01] MEDS: Fenofibrate Nanocrystallized 145 MG TAB PO SCH (09:00)
[2018-10-01] MEDS: Finasteride 5 MG TAB PO SCH (09:00)
[2018-10-01] MEDS: Heparin 5,000 UNITS/ML VIAL SC SCH (09:01)
--- NOTE | 2018-10-02 02:58 | DIS ---
DATE OF ADMISSION: 09/27/2018 DATE OF DISCHARGE: 10/01/2018 DISCHARGE DIAGNOSES: 1. Liver carcinoma. 2. Generalized weakness. 3. Parkinson's. 4. Hypertension. HOSPITAL COURSE: The patient is an 78-year-old male who resides with his , who came into the hospital with complaints of generalized weakness. He had a CT of abdomen and pelvis done, which indicated some concerning lesions that were noted in his hepatic area. Also, hepatic cirrhosis was noted and he had a mildly enlarged celiac lymph nodes. The patient underwent an abdominal MRI due to allergy to iodine and also GI was consulted. The MRI indicated a liver mass suspicious for malignancy or metastatic disease. Also, his alpha fetoprotein was significantly elevated and it was 309562.4. At this time, Oncology was consulted for possible treatment. However, given the patient's worsening and poor baseline status, hospice was the only option. At this time, this was discussed with the patient, , and family, and the patient will be discharged to home with hospice. DISCHARGE MEDICATIONS: As of the following; 1. Protonix 40 mg daily. 2. Flomax 0.4 mg daily. 3. Omeprazole 40 mg q.i.d. 4. Levemir 30 units b.i.d. 5. Ferrous sulfate 240 t.i.d. 6. Finasteride 5 mg q.a.m. 7. Rosuvastatin 40 mg q.p.m. 8. Fenofibrate 145 mg q.a.m. 9. Plavix 75 mg q.a.m. 10. Citalopram 10 mg daily. 11. Benazepril 5 mg p.o. daily. Again, the patient will be discharged home. He will follow up with his primary care doctor and also hospice will be following him. Job ID: [id number]
== END 2018-10-01 12:28 | disposition hospice, home (50) | DRG 436 ==
LOC: ERS 16:06 → OBSVTOIN 09-27 02:07 → T4-B 09-27 02:07
PROVIDERS: ADMIT Hospitalist; ATTEND Hospitalist
DX: C22.0 Liver cell carcinoma (principal); C77.2 Secondary and unspecified malignant neoplasm of intra-abdominal lymph nodes; G20 Parkinson's disease; E11.22 Type 2 diabetes mellitus with diabetic chronic kidney disease; E11.65 Type 2 diabetes mellitus with hyperglycemia; F02.80 Dementia in other diseases classified elsewhere, unspecified severity, without behavioral disturbance, psychotic disturbance, mood disturbance, and anxiety; N18.3 Chronic kidney disease, stage 3 (moderate); K74.60 Unspecified cirrhosis of liver; I12.9 Hypertensive chronic kidney disease with stage 1 through stage 4 chronic kidney disease, or unspecified chronic kidney disease; E78.5 Hyperlipidemia, unspecified; K21.9 Gastro-esophageal reflux disease without esophagitis; N40.0 Benign prostatic hyperplasia without lower urinary tract symptoms; F32.9 Major depressive disorder, single episode, unspecified; Z88.6 Allergy status to analgesic agent; Z91.040 Latex allergy status; Z88.8 Allergy status to other drugs, medicaments and biological substances; Z79.4 Long term (current) use of insulin; Z79.899 Other long term (current) drug therapy
CPT/HCPCS: 36415; 36416; 51701; 70450; 71045; 74177; 74183; 80048; 80053; 81003; 81015; 82103; 82105; 82378; 82390; 82728; 83516; 83540; 83550; 83735; 83880; 84443; 84484; 85025; 86038; 86225; 86704; 86706; 86803; 87340; 93005; 96360; 96361; A9579; J1644